=== PATIENT | female | born 1935 ===

== ENCOUNTER 2018-04-03 07:18 | Emergency (ER) | payer OTHER ==
--- NOTE | 2018-04-03 08:07 | RAD REPORT ---
EXAM DESCRIPTION: RAD - Foot Left 3 View - 04/03/2018 7:55 am CLINICAL HISTORY: Recent fall, persistent foot pain COMPARISON: None. FINDINGS: No fracture, dislocation or periosteal reaction. No acute or destructive bony process. No air or foreign body in the soft tissues. Distal foot soft tissue swelling is evident without an as sociated bone or joint finding. IMPRESSION: Soft tissue swelling of the left foot is evident. No acute bone or joint finding.
--- NOTE | 2018-04-03 08:08 | RAD REPORT ---
EXAM DESCRIPTION: RAD - Pelvis - 04/03/2018 7:55 am CLINICAL HISTORY: Recent fall, pelvic pain COMPARISON: None. TECHNIQUE: AP imaging of the pelvis was obtained. FINDINGS: No fracture of the bony pelvis. No fracture, dislocation or other acute hip joint finding. No gross abnormality the SI joints. Sacral ala are too obscured by overlying soft tissues and bowel. No soft tissue abnormality. IMPRESSION: Negative pelvis for acute or significant findings. Assessment of the sacral ala and SI j oints very limited.
--- NOTE | 2018-04-03 08:09 | RAD REPORT ---
EXAM DESCRIPTION: RAD - Elbow Left 3 View - 04/03/2018 7:55 am COMPARISON: None. FINDINGS: No fracture is identified and no elevated posterior fat pad. There is no dislocation or pe riosteal reaction noted. No foreign body or other soft tissue abnormality. Slight cortical irregula rity of the lateral margin radial head believed to be normal variant. This is not a typical site for fracture. IMPRESSION: Negative left elbow examination for acute or significant finding.
--- NOTE | 2018-04-03 08:39 | EDPHYS ---
Physician Documentation [facility] Name: Magali Pineda Age: 82 yrs Sex: Female : 1935 Arrival Date: 04/03/2018 Time: 07:20 Bed 13 Private MD: ED Physician Kade Bonilla HPI: 04/03 08:32 This 82 yrs old Unknown Female presents to ER via Wheelchair with complaints of Foot gs Pain. 08:32 The patient presents with an injury, pain. The complaints affect the left foot. gs Context: The problem was sustained at home, resulted from the patient falling, from a standing position, the patient can partially bear weight, the patient is able to ambulate. Associated signs and symptoms: Pertinent positives: left elbow pain. Severity of symptoms: At their worst the symptoms were moderate, in the emergency department the symptoms are unchanged. Historical: - Allergies: 07:35 Clindamycin; ss 07:35 PENICILLINS; ss 07:35 Sulfa (Sulfonamide Antibiotics); ss - Home Meds: 07:25 Actos 30 mg Oral tab 1 tab once daily [Active]; Alphagan P ophthalmic [Active]; Altace rb1 10 mg Oral cap 1 cap once daily [Active]; Ambien CR 12.5 mg Oral TbMP 1 tab once daily [Active]; aspirin 81 mg Oral chew 1 tab once daily [Active]; Celexa 40 mg Oral tab 1 tab once daily [Active]; Claritin 10 mg Oral tab 1 tab once daily [Active]; clobetasol 0.05 % Topical sham every other night [Active]; Coreg 25 mg Oral tab 1 tab 2 times per day [Active]; Ferrocite Plus 106 mg iron- 1 mg Oral tab 1 tab once daily [Active]; Fish Oil Oral [Active]; fluocinonide ointment 0.05 % apply to ears HS [Active]; Lipitor 40 mg Oral tab 1 tab once daily [Active]; metformin 500 mg Oral tab 2 tabs 2 times per day [Active]; Dexilant 60 mg Oral CpDB 1 cap once daily [Active]; hydrochlorothiazide 25 mg Oral tab 1 tab once daily [Active]; Tricor 145 mg Oral tab 1 tab once daily [Active]; potassium chloride 10 mEq Oral cpER 1 cap once daily [Active]; tramadol 50 mg Oral tab 1 tab BID for Pain [Active]; Zioptan (PF) 0.0015 % ophthalmic dpet 1 drop once daily [Active]; optivar one drop each eye at bedtime [Active]; - PMHx: 07:35 COPD; Diabetes - NIDDM; Hypertension; ss - PSHx: 07:25 unknown throat; unknown abdominal; rb1 - Immunization history:: Adult Immunizations up to date. - Social history:: Smoking status: Patient/guardian denies using tobacco. - Ebola Screening: : Patient denies exposure to infectious person Patient denies travel to an Ebola-affected area in the 21 days before illness onset. ROS: 08:32 All other systems are negative. gs 08:32 Cardiovascular: Negative for chest pain, palpitations. gs Exam: 08:32 Head/Face: Normocephalic, atraumatic. Eyes: Pupils equal round and reactive to light, gs extra-ocular motions intact. Lids and lashes normal. Conjunctiva and sclera are non-icteric and not injected. Cornea within normal limits. Periorbital areas with no swelling, redness, or edema. ENT: Nares patent. No nasal discharge, no septal abnormalities noted. Tympanic membranes are normal and external auditory canals are clear. Oropharynx with no redness, swelling, or masses, exudates, or evidence of obstruction, uvula midline. Mucous membranes moist. Neck: Trachea midline, no thyromegaly or masses palpated, and no cervical lymphadenopathy. Supple, full range of motion without nuchal rigidity, or vertebral point tenderness. No Meningismus. Chest/axilla: Normal chest wall appearance and motion. Nontender with no deformity. No lesions are appreciated. Cardiovascular: Regular rate and rhythm with a normal S1 and S2. No gallops, murmurs, or rubs. Normal PMI, no JVD. No pulse deficits. Respiratory: Lungs have equal breath sounds bilaterally, clear to auscultation and percussion. No rales, rhonchi or wheezes noted. No increased work of breathing, no retractions or nasal flaring. Abdomen/GI: Soft, non-tender, with normal bowel sounds. No distension or tympany. No guarding or rebound. No evidence of tenderness throughout. Back: No spinal tenderness. No costovertebral tenderness. Full range of motion. Skin: Warm, dry with normal turgor. Normal color with no rashes, no lesions, and no evidence of cellulitis. Neuro: Awake and alert, GCS 15, oriented to person, place, time, and situation. Cranial nerves II-XII grossly intact. Motor strength 5/5 in all extremities. Sensory grossly intact. Cerebellar exam normal. Normal gait. 08:32 Constitutional: The patient appears alert, awake. 08:32 Musculoskeletal/extremity: Extremities: noted in the dorsum of left foot: ecchymosis, pain, tenderness, There is no evidence of deformity, noted in the left elbow: decreased ROM, pain, tenderness, noted in the left hip: pain, tenderness, no evidence of deformity, Circulation is intact in all extremities. Vital Signs: 07:35 BP 162 / 106; Pulse 91; Resp 18; Temp 98.0(TE); Pulse Ox 94% on R/A; Weight 96.16 kg; ss Height 5 ft. 5 in. (165.10 cm); Pain 4/10; 08:30 BP 125 / 70; Pulse 83; Resp 17; Pulse Ox 92% on R/A; rb1 08:55 BP 125 / 70; Pulse 85; Resp 18; Pulse Ox 92% on R/A; rb1 07:35 Body Mass Index 35.28 (96.16 kg, 165.10 cm) ss MDM: 07:31 Patient medically screened. gs 08:32 Differential diagnosis: fracture, sprain. Data reviewed: vital signs, nurses notes. gs Counseling: I had a detailed discussion with the patient and/or guardian regarding: the historical points, exam findings, and any diagnostic results supporting the discharge/admit diagnosis, radiology results. Response to treatment: the patient's symptoms have mildly improved after treatment. 04/03 07:33 Order name: Foot Left 3 View XRAY; Complete Time: 08:28 gs 04/03 07:33 Order name: Elbow Left 3 View XRAY; Complete Time: 08:28 gs 04/03 07:33 Order name: Pelvis XRAY; Complete Time: 08:28 gs Administered Medications: No medications were administered Disposition: 04/03/18 08:38 Discharged to Home. Impression: Contusion of lower leg, Contusion of left elbow. - Condition is Stable. - Discharge Instructions: Contusion, [id number]. - Medication Reconciliation Form, Thank You Letter, Antibiotic Education, Prescription Opioid Use form. - Follow up: Hari Larios MD; When: 2 - 3 days; Reason: Re-evaluation by your physician. Signatures: Dispatcher [employer] Evelyn Shin, RN RN ss Bella Mendenhall RN RN rb1 Kade Bonilla MD MD gs Corrections: (The following items were deleted from the chart) 08:55 08:38 04/03/2018 08:38 Discharged to Home. Impression: Contusion of lower leg; rb1 Contusion of left elbow. Condition is Stable. Forms are Medication Reconciliation Form, Thank You Letter, Antibiotic Education, Prescription Opioid Use. Follow up: Dr. Hari Larios; When: 2 - 3 days; Reason: Re-evaluation by your physician. gs
--- NOTE | 2018-04-03 08:39 | ER ---
Nurse's Notes [facility] Name: Magali Pineda Age: 82 yrs Sex: Female : 1935 Arrival Date: 04/03/2018 Time: 07:20 Bed 13 Private MD: Diagnosis: Contusion of lower leg;Contusion of left elbow Presentation: 04/03 07:21 Presenting complaint: Patient states: L foot, L elbow and L hip pain that began after ss falling from a standing position yesterday at 1630. Risk Assessment: Do you want to hurt yourself or someone else? Patient reports no desire to harm self or others. Initial Sepsis Screen: Does the patient meet any 2 criteria? No. Patient's initial sepsis screen is negative. Does the patient have a suspected source of infection? No. Patient's initial sepsis screen is negative. Care prior to arrival: None. 07:21 Method Of Arrival: Wheelchair ss 07:21 Acuity: MONICA 4 ss 07:32 Transition of care: patient was not received from another setting of care. Onset of ss symptoms was April 02, 2018. Historical: - Allergies: 07:35 Clindamycin; ss 07:35 PENICILLINS; ss 07:35 Sulfa (Sulfonamide Antibiotics); ss - Home Meds: 07:25 Actos 30 mg Oral tab 1 tab once daily [Active]; Alphagan P ophthalmic [Active]; Altace rb1 10 mg Oral cap 1 cap once daily [Active]; Ambien CR 12.5 mg Oral TbMP 1 tab once daily [Active]; aspirin 81 mg Oral chew 1 tab once daily [Active]; Celexa 40 mg Oral tab 1 tab once daily [Active]; Claritin 10 mg Oral tab 1 tab once daily [Active]; clobetasol 0.05 % Topical sham every other night [Active]; Coreg 25 mg Oral tab 1 tab 2 times per day [Active]; Ferrocite Plus 106 mg iron- 1 mg Oral tab 1 tab once daily [Active]; Fish Oil Oral [Active]; fluocinonide ointment 0.05 % apply to ears HS [Active]; Lipitor 40 mg Oral tab 1 tab once daily [Active]; metformin 500 mg Oral tab 2 tabs 2 times per day [Active]; Dexilant 60 mg Oral CpDB 1 cap once daily [Active]; hydrochlorothiazide 25 mg Oral tab 1 tab once daily [Active]; Tricor 145 mg Oral tab 1 tab once daily [Active]; potassium chloride 10 mEq Oral cpER 1 cap once daily [Active]; tramadol 50 mg Oral tab 1 tab BID for Pain [Active]; Zioptan (PF) 0.0015 % ophthalmic dpet 1 drop once daily [Active]; optivar one drop each eye at bedtime [Active]; - PMHx: 07:35 COPD; Diabetes - NIDDM; Hypertension; ss - PSHx: 07:25 unknown throat; unknown abdominal; rb1 - Immunization history:: Adult Immunizations up to date. - Social history:: Smoking status: Patient/guardian denies using tobacco. - Ebola Screening: : Patient denies exposure to infectious person Patient denies travel to an Ebola-affected area in the 21 days before illness onset. Screenin:25 Abuse screen: Denies threats or abuse. Nutritional screening: No deficits noted. rb1 Tuberculosis screening: No symptoms or risk factors identified. 07:25 Fall Risk Fall in past 12 months (25 points). Secondary diagnosis (15 points) impaired rb1 mobility, No IV (0 pts). Ambulatory Aid- Crutches/Cane/Walker (15 pts). Gait- Impaired (20 pts.). Mental Status- Oriented to own ability (0 pts). Total Finnegan Fall Scale indicates High Risk Score (45 or more points). Fall prevention measures have been instituted. Side Rails Up X 2 Placed Close to Nursing Station 1:1 Attendant Assigned Frequent Obs/Assessments Occuring As available patient and family educated on Fall Prevention Program and Strategies. Assessment: 07:25 General: Appears in no apparent distress. comfortable, Behavior is calm, cooperative. rb1 Pain: Complains of pain in left foot and left elbow Pain currently is 8 out of 10 on a pain scale. Pain began 1 day ago. Neuro: Level of Consciousness is awake, alert, obeys commands, Oriented to person, place, time, situation. Cardiovascular: Capillary refill < 3 seconds is brisk in bilateral fingers. Respiratory: Airway is patent Respiratory effort is even, unlabored, Respiratory pattern is regular, symmetrical. GI: No signs and/or symptoms were reported involving the gastrointestinal system. : No signs and/or symptoms were reported regarding the genitourinary system. Derm: Skin is pink, warm \T\ dry. Musculoskeletal: Range of motion: intact in all extremities, Pt. c/o of pain when trying to ambulate. 07:46 Reassessment: X-ray at bedside. rb1 08:20 Reassessment: Patient appears in no apparent distress at this time. No changes from rb1 previously documented assessment. Daughter at bedside. Vital Signs: 07:35 BP 162 / 106; Pulse 91; Resp 18; Temp 98.0(TE); Pulse Ox 94% on R/A; Weight 96.16 kg; ss Height 5 ft. 5 in. (165.10 cm); Pain 4/10; 08:30 BP 125 / 70; Pulse 83; Resp 17; Pulse Ox 92% on R/A; rb1 08:55 BP 125 / 70; Pulse 85; Resp 18; Pulse Ox 92% on R/A; rb1 07:35 Body Mass Index 35.28 (96.16 kg, 165.10 cm) ED Course: 07:20 Patient arrived in ED. ss 07:22 Triage completed. ss 07:25 Bella Mendenhall, RN is Primary Nurse. rb1 07:25 Patient has correct armband on for positive identification. Placed in gown. Bed in low rb1 position. Call light in reach. Side rails up X 1. Pulse ox on. NIBP on. 07:26 Kade Bonilla MD is Attending Physician. gs 07:35 Arm band placed on right wrist. ss 07:55 X-ray completed. Portable x-ray completed in exam room. Patient tolerated procedure sg4 well. 07:55 Foot Left 3 View XRAY In Process Unspecified. EDMS 07:56 Elbow Left 3 View XRAY In Process Unspecified. EDMS 07:56 Pelvis XRAY In Process Unspecified. EDMS 08:37 Hari Larios MD is Referral Physician. gs 08:55 No provider procedures requiring assistance completed. Patient did not have IV access rb1 during this emergency room visit. Administered Medications: No medications were administered Outcome: 08:38 Discharge ordered by . gs 08:55 Patient left the ED. rb1 08:55 Discharged to home via wheelchair, with family. rb1 08:55 Condition: stable 08:55 Discharge instructions given to patient, Instructed on discharge instructions, follow up and referral plans. Demonstrated understanding of instructions, follow-up care, Prescriptions given X none Signatures: Dispatcher [employer] EDAnni Taylorby, RN RN ss Bella Mendenhall RN RN rb1 Kade Bonilla MD MD gs Garcia, Susana sg4 Corrections: (The following items were deleted from the chart) 07:33 07:21 Presenting complaint: Patient states: L foot pain that began after falling from a ss standing position yesterday at 1630.
== END 2018-04-03 08:55 | disposition home or self-care (01) ==
LOC: ER 07:18
DX: S80.12XA Contusion of left lower leg, initial encounter (principal); S50.02XA Contusion of left elbow, initial encounter; W18.39XA Other fall on same level, initial encounter; Y93.89 Activity, other specified; Y92.009 Unspecified place in unspecified non-institutional (private) residence as the place of occurrence of the external cause; Z79.82 Long term (current) use of aspirin; Z88.0 Allergy status to penicillin; Z88.2 Allergy status to sulfonamides; Z88.3 Allergy status to other anti-infective agents; I10 Essential (primary) hypertension; E11.9 Type 2 diabetes mellitus without complications; J44.9 Chronic obstructive pulmonary disease, unspecified
CPT/HCPCS: 72170; 99283

== ENCOUNTER 2018-05-17 05:00 | Inpatient (IN) | payer OTHER ==
[2018-05-17] MEDS ORDERED: FENTANYL CITR 100 MCG/2 ML ONE (05:45)
[2018-05-17] MEDS ORDERED: ONDANSETRON 4 MG/2 ML VIAL ONE ×2 (05:46→07:27)
--- NOTE | 2018-05-17 06:32 | EDPHYS ---
Physician Documentation [facility] Name: Magali Pineda Age: 83 yrs Sex: Female : 1935 Arrival Date: 05/17/2018 Time: 05:03 Bed 16 Private MD: ED Physician Ludin Solorio HPI: 05/17 05:34 This 83 yrs old Unknown Female presents to ER via EMS with complaints of right hip pain sami sp fall. 05:34 The patient or guardian reports decreased range of motion, pain. the right lower sami extremity is shortened, right leg is externally rotated, The patient is not able to ambulate. Patient is not able to bear weight. The complaints affect the right hip and right upper thigh. Onset: The symptoms/episode began/occurred just prior to arrival. Modifying factors: The symptoms are alleviated by remaining still, the symptoms are aggravated by nothing. The patient presents with decreased range of motion. The complaints affect the right hip and right upper thigh. Context: The problem was sustained at home. Historical: - Allergies: 05:03 Clindamycin; jb4 05:03 PENICILLINS; jb4 05:03 Sulfa (Sulfonamide Antibiotics); jb4 05:03 Ciprofloxacin; jb4 - Home Meds: 05:03 Actos 30 mg Oral tab 1 tab once daily [Active]; Alphagan P ophthalmic [Active]; Altace jb4 10 mg Oral cap 1 cap once daily [Active]; Ambien CR 12.5 mg Oral TbMP 1 tab once daily [Active]; aspirin 81 mg Oral chew 1 tab once daily [Active]; Celexa 40 mg Oral tab 1 tab once daily [Active]; Claritin 10 mg Oral tab 1 tab once daily [Active]; Coreg 25 mg Oral tab 1 tab 2 times per day [Active]; fluocinonide ointment 0.05 % apply to ears HS [Active]; Lipitor 40 mg Oral tab 1 tab once daily [Active]; Dexilant 60 mg Oral CpDB 1 cap once daily [Active]; Ferrocite Plus 106 mg iron- 1 mg Oral tab 1 tab once daily [Active]; Fish Oil Oral [Active]; hydrochlorothiazide 25 mg Oral tab 1 tab once daily [Active]; metformin 500 mg Oral tab 2 tabs 2 times per day [Active]; optivar one drop each eye at bedtime [Active]; potassium chloride 10 mEq Oral cpER 1 cap once daily [Active]; tramadol 50 mg Oral tab 1 tab BID for Pain [Active]; Tricor 145 mg Oral tab 1 tab once daily [Active]; Zioptan (PF) 0.0015 % ophthalmic dpet 1 drop once daily [Active]; - PMHx: 05:03 Hypertension; Diabetes - NIDDM; COPD; jb4 - PSHx: 05:03 unknown throat; unknown abdominal; jb4 - Immunization history:: Adult Immunizations up to date, Pneumococcal vaccine is up to date, Flu vaccine is up to date. - Social history:: Smoking status: Patient/guardian denies using tobacco, but has a distant history of tobacco abuse, Patient/guardian denies using alcohol. - Ebola Screening: : No symptoms or risks identified at this time. ROS: 05:36 Constitutional: Negative for fever, chills, and weight loss, Eyes: Negative for injury, sami pain, redness, and discharge, ENT: Negative for injury, pain, and discharge, Neck: Negative for injury, pain, and swelling, Cardiovascular: Negative for chest pain, palpitations, and edema, Respiratory: Negative for shortness of breath, cough, wheezing, and pleuritic chest pain, Abdomen/GI: Negative for abdominal pain, nausea, vomiting, diarrhea, and constipation, Back: Negative for injury and pain, : Negative for injury, bleeding, discharge, and swelling, Skin: Negative for injury, rash, and discoloration, Neuro: Negative for headache, weakness, numbness, tingling, and seizure, Psych: Negative for depression, anxiety, suicide ideation, homicidal ideation, and hallucinations, Allergy/Immunology: Negative for hives, rash, and allergies, Endocrine: Negative for neck swelling, polydipsia, polyuria, polyphagia, and marked weight changes, Hematologic/Lymphatic: Negative for swollen nodes, abnormal bleeding, and unusual bruising. 05:36 MS/extremity: Positive for decreased range of motion, pain, tenderness, of the right femoral area and right hip. Exam: 05:36 Constitutional: This is a well developed, well nourished patient who is awake, alert, sami and in no acute distress. Head/Face: Normocephalic, atraumatic. Eyes: Pupils equal round and reactive to light, extra-ocular motions intact. Lids and lashes normal. Conjunctiva and sclera are non-icteric and not injected. Cornea within normal limits. Periorbital areas with no swelling, redness, or edema. ENT: Nares patent. No nasal discharge, no septal abnormalities noted. Tympanic membranes are normal and external auditory canals are clear. Oropharynx with no redness, swelling, or masses, exudates, or evidence of obstruction, uvula midline. Mucous membranes moist. Neck: Trachea midline, no thyromegaly or masses palpated, and no cervical lymphadenopathy. Supple, full range of motion without nuchal rigidity, or vertebral point tenderness. No Meningismus. Chest/axilla: Normal chest wall appearance and motion. Nontender with no deformity. No lesions are appreciated. Cardiovascular: Regular rate and rhythm with a normal S1 and S2. No gallops, murmurs, or rubs. Normal PMI, no JVD. No pulse deficits. Respiratory: Lungs have equal breath sounds bilaterally, clear to auscultation and percussion. No rales, rhonchi or wheezes noted. No increased work of breathing, no retractions or nasal flaring. Abdomen/GI: Soft, non-tender, with normal bowel sounds. No distension or tympany. No guarding or rebound. No evidence of tenderness throughout. Back: No spinal tenderness. No costovertebral tenderness. Full range of motion. Skin: Warm, dry with normal turgor. Normal color with no rashes, no lesions, and no evidence of cellulitis. Neuro: Awake and alert, GCS 15, oriented to person, place, time, and situation. Cranial nerves II-XII grossly intact. Motor strength 5/5 in all extremities. Sensory grossly intact. Cerebellar exam normal. Normal gait. Psych: Awake, alert, with orientation to person, place and time. Behavior, mood, and affect are within normal limits. 05:36 Musculoskeletal/extremity: ROM: limited active range of motion, in the right hip and right upper thigh, limited passive range of motion, limited active range of motion due to pain, limited passive range of motion due to pain, Pulses: are normal with no appreciated deficits, Sensation intact. Compartment Syndrome exam of affected extremity: is normal. DVT Exam: No signs of deep vein thrombosis. no pain, no swelling, negative Homans' sign noted on exam, no appreciated bluish discoloration, no erythema, no increased warmth, tenderness. Vital Signs: 05:03 BP 127 / 84; Pulse 95; Resp 16; Temp 98.8(O); Pulse Ox 94% on R/A; Weight 96.16 kg (R); jb4 Height 5 ft. 5 in. (165.10 cm) (R); Pain 9/10; 06:30 BP 141 / 76; Pulse 104; Resp 23; Pulse Ox 95% on 2 lpm NC; jb4 07:15 BP 181 / 88; Pulse 101; Resp 16; Pulse Ox 99% on 2 lpm NC; Pain 10/10; jl7 07:30 BP 131 / 72; Pulse 104; Resp 16 S; Pulse Ox 99% on 2 lpm NC; Pain 5/10; jl7 08:09 BP 132 / 86; Pulse 106; Resp 16 S; Pulse Ox 99% on 2 lpm NC; Pain 7/10; jl7 05:03 Body Mass Index 35.28 (96.16 kg, 165.10 cm) jb4 MDM: 05:13 Patient medically screened. [facility] 05:36 Data reviewed: vital signs, nurses notes, lab test result(s), EKG, radiologic studies, sami plain films. 05/17 05:26 Order name: Basic Metabolic Panel; Complete Time: 07:08 [facility] 05/17 05:26 Order name: CBC with Diff [facility] 05/17 05:26 Order name: LFT's; Complete Time: 07:08 [facility] 05/17 05:26 Order name: Magnesium; Complete Time: 07:08 [facility] 05/17 05:26 Order name: NT PRO-BNP; Complete Time: 07:08 [facility] 05/17 05:26 Order name: PT-INR; Complete Time: 07:24 [facility] 05/17 05:26 Order name: Troponin (emerg Dept Use Only); Complete Time: 07:08 [facility] 05/17 05:26 Order name: XRAY Chest (1 view) [facility] 05/17 05:26 Order name: Lipase; Complete Time: 07:08 [facility] 05/17 05:26 Order name: Type And Screen [facility] 05/17 05:26 Order name: Pelvis XRAY [facility] 05/17 05:26 Order name: Urine Culture [facility] 05/17 06:58 Order name: ABO/RH no charge; Complete Time: 07:02 EDMS 05/17 07:05 Order name: Urine Dipstick--Ancillary (enter results) ar5 05/17 05:26 Order name: EKG; Complete Time: 05:27 [facility] 05/17 05:26 Order name: Cardiac monitoring; Complete Time: 06:15 [facility] 05/17 05:26 Order name: EKG - Nurse/Tech; Complete Time: 06:07 [facility] 05/17 05:26 Order name: IV Saline Lock; Complete Time: 06:07 [facility] 05/17 05:26 Order name: Labs collected and sent; Complete Time: 06:07 [facility] 05/17 05:26 Order name: O2 Per Protocol; Complete Time: 06:15 [facility] 05/17 05:26 Order name: O2 Sat Monitoring; Complete Time: 06:15 [facility] 05/17 05:26 Order name: Hip Right 2 View XRAY [facility] 05/17 05:26 Order name: Urine Dipstick-Ancillary (obtain specimen); Complete Time: 06:58 [facility] 05/17 05:26 Order name: Mireles; Complete Time: 06:58 [facility] Administered Medications: 06:10 Drug: fentaNYL (PF) 25 mcg Route: IVP; Site: left forearm; jb4 07:03 Follow up: Response: No adverse reaction; Pain is decreased jb4 06:11 Drug: Zofran 4 mg Route: IVP; Site: left forearm; jb4 07:03 Follow up: Response: No adverse reaction; Nausea is decreased jb4 06:45 Drug: fentaNYL (PF) 25 mcg Route: IVP; Site: left forearm; jb4 07:15 Follow up: Response: No adverse reaction; Pain is unchanged, physician notified jl7 07:20 Drug: Zofran 4 mg Route: IVP; Site: left forearm; jl7 08:08 Follow up: Response: No adverse reaction jl7 07:22 Drug: morphine 2 mg Route: IVP; Site: left forearm; jl7 07:35 Follow up: Response: No adverse reaction; Pain is decreased jl7 07:24 Drug: Magnesium Sulfate 2 grams Route: IVPB; Infused Over: 2 hrs; Site: left forearm; jl7 08:11 Follow up: IV Status: Infusion continued upon admission jl7 08:07 Drug: morphine 2 mg Route: IVP; Site: left forearm; jl7 08:08 Follow up: Response: No adverse reaction jl7 Disposition: 05/17/18 06:31 Hospitalization ordered by Kal Montenegro for Inpatient Admission. Preliminary diagnosis are Fall due to bumping against object, Displaced intertrochanteric fracture of right femur, Hypomagnesemia, Elevated white blood cell count. - Bed requested for Telemetry/MedSurg (Inpatient). - Status is Inpatient Admission. jl7 - Condition is Fair. - Problem is new. - Symptoms have improved. UTI on Admission? No Signatures: Dispatcher [employer] EDMS Heaven Cunha RN Ludin Kelley MD MD cha Bryson, James, RN RN jb4 Harjeet English RN RN jl7 Corrections: (The following items were deleted from the chart) 06:56 06:31 Hospitalization Ordered by Kal Montenegro MD for Inpatient Admission. Preliminary diagnosis is Fall due to bumping against object; Displaced intertrochanteric fracture of right femur. Bed requested for Telemetry/MedSurg (Inpatient). Status is Inpatient Admission. Condition is Fair. Problem is new. Symptoms have improved. UTI on Admission? No. sami 07:10 06:56 05/17/2018 06:31 Hospitalization Ordered by Kal Montenegro MD for Inpatient [facility] Admission. Preliminary diagnosis is Fall due to bumping against object; Displaced intertrochanteric fracture of right femur. Bed requested for Telemetry/MedSurg (Inpatient). Status is Inpatient Admission. Condition is Fair. Problem is new. Symptoms have improved. UTI on Admission? No. kl 08:28 07:10 05/17/2018 06:31 Hospitalization Ordered by Kal Montenegro MD for Inpatient jl Admission. Preliminary diagnosis is Fall due to bumping against object; Displaced intertrochanteric fracture of right femur; Hypomagnesemia; Elevated white blood cell count. Bed requested for Telemetry/MedSurg (Inpatient). Status is Inpatient Admission. Condition is Fair. Problem is new. Symptoms have improved. UTI on Admission? No. sami
--- NOTE | 2018-05-17 06:32 | ER ---
Nurse's Notes [facility] Name: Magali Pineda Age: 83 yrs Sex: Female : 1935 Arrival Date: 05/17/2018 Time: 05:03 Bed 16 Private MD: Diagnosis: Fall due to bumping against object;Displaced intertrochanteric fracture of right femur;Hypomagnesemia;Elevated white blood cell count Presentation: 05/17 05:03 Presenting complaint: EMS states: She fell at home and hit her right hip. No obvious jb4 deformity, denies hitting her head or LOC. The leg is tender to the touch. 05:03 Transition of care: patient was not received from another setting of care. Onset of jb4 symptoms was May 17, 2018. Risk Assessment: Do you want to hurt yourself or someone else? Patient reports no desire to harm self or others. Initial Sepsis Screen: Does the patient meet any 2 criteria? HR > 90 bpm. Yes Does the patient have a suspected source of infection? No. Patient's initial sepsis screen is negative. 05:03 Method Of Arrival: EMS: [facility] jb4 05:03 Acuity: MONICA 3 jb4 05:03 Care prior to arrival: None. jb4 Historical: - Allergies: 05:03 Clindamycin; jb4 05:03 PENICILLINS; jb4 05:03 Sulfa (Sulfonamide Antibiotics); jb4 05:03 Ciprofloxacin; jb4 - Home Meds: 05:03 Actos 30 mg Oral tab 1 tab once daily [Active]; Alphagan P ophthalmic [Active]; Altace jb4 10 mg Oral cap 1 cap once daily [Active]; Ambien CR 12.5 mg Oral TbMP 1 tab once daily [Active]; aspirin 81 mg Oral chew 1 tab once daily [Active]; Celexa 40 mg Oral tab 1 tab once daily [Active]; Claritin 10 mg Oral tab 1 tab once daily [Active]; Coreg 25 mg Oral tab 1 tab 2 times per day [Active]; fluocinonide ointment 0.05 % apply to ears HS [Active]; Lipitor 40 mg Oral tab 1 tab once daily [Active]; Dexilant 60 mg Oral CpDB 1 cap once daily [Active]; Ferrocite Plus 106 mg iron- 1 mg Oral tab 1 tab once daily [Active]; Fish Oil Oral [Active]; hydrochlorothiazide 25 mg Oral tab 1 tab once daily [Active]; metformin 500 mg Oral tab 2 tabs 2 times per day [Active]; optivar one drop each eye at bedtime [Active]; potassium chloride 10 mEq Oral cpER 1 cap once daily [Active]; tramadol 50 mg Oral tab 1 tab BID for Pain [Active]; Tricor 145 mg Oral tab 1 tab once daily [Active]; Zioptan (PF) 0.0015 % ophthalmic dpet 1 drop once daily [Active]; - PMHx: 05:03 Hypertension; Diabetes - NIDDM; COPD; jb4 - PSHx: 05:03 unknown throat; unknown abdominal; jb4 - Immunization history:: Adult Immunizations up to date, Pneumococcal vaccine is up to date, Flu vaccine is up to date. - Social history:: Smoking status: Patient/guardian denies using tobacco, but has a distant history of tobacco abuse, Patient/guardian denies using alcohol. - Ebola Screening: : No symptoms or risks identified at this time. Screenin:03 Abuse screen: Denies threats or abuse. Nutritional screening: No deficits noted. jb4 Tuberculosis screening: No symptoms or risk factors identified. Fall Risk Fall in past 12 months (25 points). Total Finnegan Fall Scale indicates Low Risk Score (25-44 pts). Fall prevention measures have been instituted. Side Rails Up X 2 Placed close to Nursing Station Frequent Obs/Assesments occuring Family Present and informed to notify staff if they need to leave bedside. Assessment: 05:03 General: Appears in no apparent distress. uncomfortable, Behavior is calm, cooperative, jb4 appropriate for age. Pain: Complains of pain in right hip Pain radiates to right leg Pain currently is 9 out of 10 on a pain scale. Quality of pain is described as sharp, stabbing, Pain began 1 hour ago. Neuro: Level of Consciousness is awake, alert, obeys commands, Oriented to person, place, time, situation. Cardiovascular: Patient's skin is warm and dry. Respiratory: Airway is patent Respiratory effort is even, unlabored, Respiratory pattern is regular, symmetrical. GI: No signs and/or symptoms were reported involving the gastrointestinal system. : No signs and/or symptoms were reported regarding the genitourinary system. EENT: No signs and/or symptoms were reported regarding the EENT system. Derm: Skin is intact, Skin is pink, warm \T\ dry. Musculoskeletal: Circulation, motion, and sensation intact. Range of motion: limited in right hip Right leg is noticeably shorter than the left. 06:16 Reassessment: Patient appears in no apparent distress at this time. Patient and/or jb4 family updated on plan of care and expected duration. Pain level reassessed. Patient is alert, oriented x 3, equal unlabored respirations, skin warm/dry/pink. Xray is at the bedside. 07:15 Reassessment: Patient appears in no apparent distress at this time. Patient and/or jl7 family updated on plan of care and expected duration. Pain level reassessed. Patient is alert, oriented x 3, equal unlabored respirations, skin warm/dry/pink. Pt c/o pain to the right leg, rated 10/10, ERD notified, see MAR for orders. Vital Signs: 05:03 BP 127 / 84; Pulse 95; Resp 16; Temp 98.8(O); Pulse Ox 94% on R/A; Weight 96.16 kg (R); jb4 Height 5 ft. 5 in. (165.10 cm) (R); Pain 9/10; 06:30 BP 141 / 76; Pulse 104; Resp 23; Pulse Ox 95% on 2 lpm NC; jb4 07:15 BP 181 / 88; Pulse 101; Resp 16; Pulse Ox 99% on 2 lpm NC; Pain 10/10; jl7 07:30 BP 131 / 72; Pulse 104; Resp 16 S; Pulse Ox 99% on 2 lpm NC; Pain 5/10; jl7 08:09 BP 132 / 86; Pulse 106; Resp 16 S; Pulse Ox 99% on 2 lpm NC; Pain 7/10; jl7 05:03 Body Mass Index 35.28 (96.16 kg, 165.10 cm) jb4 ED Course: 05:03 Patient arrived in ED. al2 05:03 Arm band placed on left wrist. jb4 05:03 Patient has correct armband on for positive identification. Bed in low position. Call jb4 light in reach. Side rails up X2. Pulse ox on. NIBP on. 05:08 Myron Ibarra, RN is Primary Nurse. jb4 05:10 Triage completed. jb4 05:13 Ludin Solorio MD is Attending Physician. sami 06:07 Inserted saline lock: 22 gauge in left forearm, using aseptic technique. aa1 06:30 Kal Montenegro MD is Hospitalizing Provider. sami 06:33 X-ray completed. Portable x-ray completed in exam room. Patient tolerated procedure tm4 well. 06:34 XRAY Chest (1 view) In Process Unspecified. EDMS 06:34 Pelvis XRAY In Process Unspecified. EDMS 06:34 Hip Right 2 View XRAY In Process Unspecified. EDMS 06:50 Mireles cath inserted, using sterile technique, 16 Fr., by nd, balloon inflated, to jb4 gravity drainage, urine specimen collected. 07:00 Report given to SINGH Cosby. jb4 08:10 No provider procedures requiring assistance completed. Patient admitted, IV remains in jl7 place. intact, No redness/swelling at site. Administered Medications: 06:10 Drug: fentaNYL (PF) 25 mcg Route: IVP; Site: left forearm; jb4 07:03 Follow up: Response: No adverse reaction; Pain is decreased jb4 06:11 Drug: Zofran 4 mg Route: IVP; Site: left forearm; jb4 07:03 Follow up: Response: No adverse reaction; Nausea is decreased jb4 06:45 Drug: fentaNYL (PF) 25 mcg Route: IVP; Site: left forearm; jb4 07:15 Follow up: Response: No adverse reaction; Pain is unchanged, physician notified jl7 07:20 Drug: Zofran 4 mg Route: IVP; Site: left forearm; jl7 08:08 Follow up: Response: No adverse reaction jl7 07:22 Drug: morphine 2 mg Route: IVP; Site: left forearm; jl7 07:35 Follow up: Response: No adverse reaction; Pain is decreased jl7 07:24 Drug: Magnesium Sulfate 2 grams Route: IVPB; Infused Over: 2 hrs; Site: left forearm; jl7 08:11 Follow up: IV Status: Infusion continued upon admission jl7 08:07 Drug: morphine 2 mg Route: IVP; Site: left forearm; jl7 08:08 Follow up: Response: No adverse reaction jl Outcome: 06:31 Decision to Hospitalize by Provider. sami 08:10 Admitted to Med/surg accompanied by tech, family with patient, via stretcher, room 230, jl7 with oxygen, with chart, Report called to SINGH Maya 08:10 Condition: stable 08:10 Discharge instructions given to patient, family, Instructed on the need for admit, Demonstrated understanding of instructions. 08:28 Patient left the ED. jl7 Signatures: Dispatcher [employer] EDMary Steven RN RN aa1 Ludin Solorio MD MD cha Marroquin, Tracy 4 Myron Ibarra RN RN jb4 Harjeet English RN RN jl7 Freya Jean2 Corrections: (The following items were deleted from the chart) 06:16 05:03 BP 127 / 84; Pulse 95bpm; Resp 16bpm; Pulse Ox 94% RA; 96.16 kg Reported; Height jb4 5 ft. 5 in. Reported; BMI: 35.2; Pain 910; jb4 08:10 07:15 BP 181 / 88; Pulse 101bpm; Resp 16bpm; Pulse Ox 99%; Pain 10/10; jl7 jl7
[2018-05-17 06:47] LABS: Absolute Lymphocytes (CBC) 0.4 K/uL (0.7-4.9); Absolute Monocytes 1.1 K/uL (0.1-1.3); Absolute Neutrophil 14.6 K/uL (1.8-8.0); Basophils % 0.6 % (0-1.3); Eosinophils % 1.4 % (0-4.4); Hematocrit 35.5 % (36.0-45.0); Lymphocytes % 2.5 % (15.3-44.8); MPV 9.1 fL (7.6-11.3); Monocytes % 6.6 % (3.3-12.3); RBC Red Blood Cell Count 3.91 M/uL (3.86-4.86)
[2018-05-17 07:03] LABS: ALT/SGPT 21 U/L (12-78); AST/SGOT 24 U/L (15-37); Albumin 3.7 g/dL (3.4-5.0); Alkaline Phosphatase 73 U/L (45-117); BUN Blood Urea Nitrogen 25 mg/dL (7-18); Bicarbonate 28 mmol/L (21-32); Bilirubin Direct 0.2 mg/dL (0-0.2); Bilirubin Total 0.6 mg/dL (0.2-1.0); Glucose Level 129 mg/dL (74-106); Lipase 179 U/L (73-393); NT PRO-BNP 1384 pg/mL (<450); Potassium 4.2 mmol/L (3.5-5.1); Protein, Total 6.7 g/dL (6.4-8.2); Sodium Level 138 mmol/L (136-145); Troponin (Emerg Dept Use Only) < 0.02 ng/mL (0.0-0.045)
[2018-05-17 07:06] LABS: Magnesium 1.2 mg/dL (1.8-2.4)
[2018-05-17 07:19] LABS: Protime INR 1.02
[2018-05-17] MEDS ORDERED: MORPHINE 4 MG/ML SYR ONE (07:25)
[2018-05-17] MEDS ORDERED: Magnesium Sulfate 2gm IVPB 2 G/50 ML BAG IV ONE (07:26)
--- NOTE | 2018-05-17 08:17 | RAD REPORT ---
EXAM DESCRIPTION: RAD - Chest Single View - 05/17/2018 6:34 am CLINICAL HISTORY: COUGH Chest pain. COMPARISON: Chest Single View dated 07/21/2016 FINDINGS: Portable technique limits examination quality. The lungs are grossly clear. The heart is mildly enlarged. No displaced fractures.Degenerative change s are present in both shoulders. IMPRESSION: No acute intrathoracic process suspected.
--- NOTE | 2018-05-17 08:17 | RAD REPORT ---
EXAM DESCRIPTION: RAD - Pelvis - 05/17/2018 6:34 am CLINICAL HISTORY: PAIN Fall, right hip pain COMPARISON: None FINDINGS: AP pelvis and right hip- multiple projections are submitted Intratrochanteric fracture the proximal right femur is seen with varus angulation. A dislocation is n ot evident. Bones are osteopenic.
[2018-05-17 09:50] LABS: Blood Morphology Comment NOT SEEN (NOT SEEN); Platelet Estimate ADEQ; Urine White Blood Cell Casts OK
[2018-05-17] MEDS: ACETAMINOPHEN 500 MG TAB PO PRN ×2 (10:40→14:50)
[2018-05-17] MEDS: NA CHLORIDE 0.9% 1,000 ML IV SCH ×2 (10:41→21:18)
--- NOTE | 2018-05-17 11:19 | RAD REPORT ---
EXAM DESCRIPTION: RAD - Hip Right 2 View - 05/17/2018 6:34 am CLINICAL HISTORY: PAIN Fall, right hip pain COMPARISON: None FINDINGS: AP pelvis and right hip- multiple projections are submitted Intratrochanteric fracture the proximal right femur is seen with varus angulation. A dislocation is n ot evident. Bones are osteopenic.
[2018-05-17] MEDS ORDERED: MORPHINE 4 MG/ML SYR IV PRN ×2 (11:51→16:14)
--- NOTE | 2018-05-17 14:40 | P.CNS ---
Date of Consult: 05/17/18 Reason for Consult: right hip fracture History of Present Illness: s/p fall right hip pain 01/27, she also has a left ankle sprain. requesting Dr bertrand for right hip fracture. she has been cleared for surgery. Allergies Penicillins Allergy (Severe, Verified 05/17/18 10:36) Anaphylaxis adhesive Allergy (Verified 05/17/18 09:39) Rash Sulfa (Sulfonamide Antibiotics) Allergy (Verified 05/17/18 10:36) Anaphylaxis Clindamycin Allergy (Uncoded 05/17/18 10:35) Anaphylaxis Home medications list reviewed: Yes Home Medications: Atorvastatin Calcium [Lipitor] 40 mg PO BEDTIME 05/17/18 Brimonidine Tartrate [Alphagan P] 1 drop EACH EYE BID 05/17/18 Carvedilol [Coreg*] 25 mg PO BID 05/17/18 Citalopram [Celexa*] 40 mg PO DAILY 05/17/18 Dexlansoprazole [Dexilant] 60 mg PO DAILY 05/17/18 Fenofibrate [Tricor*] 145 mg PO DAILY 05/17/18 Iron/FA/Vit B-Com W/C [Hemocyte Plus*] 1 tab PO DAILY 05/17/18 Metformin ER [Glucophage ER*] 500 mg PO BID 05/17/18 Pioglitazone [Actos*] 30 mg PO DAILY 05/17/18 Potassium Chloride [Klor-Con 10] 10 meq PO DAILY 05/17/18 Ramipril [Altace*] 10 mg PO DAILY 05/17/18 Tafluprost/Pf [Zioptan 0.0015% Eye Drops] 1 each OP BEDTIME 05/17/18 Tramadol HCl [Ultram] 50 mg PO PRN 05/17/18 Zolpidem Tartrate [Ambien Cr] 12.5 mg PO BEDTIME 05/17/18 hydroCHLOROthiazide [Hydrochlorothiazide*] 25 mg PO DAILY 05/17/18 - Past Medical/Surgical History Diabetic: Yes -: glucoma -: macular degeneration right eye -: HTN -: DM -: COPD Past Surgical History: Reviewed- Non-Contributory -: glucoma surgery 2013 -: Cataract surgery 2007 -: tonsillectomy 21 yo - Family History Mother Medical History: Heart disease Father Medical History: Heart disease - Social History Smoking Status: Former smoker Alcohol use: No CD- Drugs: No Caffeine use: No Place of [facility] Review of Systems 10-point ROS is otherwise unremarkable Physical Examination Temp Pulse Resp BP Pulse Ox 98.2 F 100 H 15 139/62 99 05/17/18 12:00 05/17/18 12:00 05/17/18 12:00 05/17/18 12:00 05/17/18 12:00 General: Oriented x3 HEENT: Atraumatic Neck: Supple Musculoskeletal: Tenderness (right hip point tendernessn right foot turned out. ) Neurological: Normal speech Laboratory Data (last 24 hrs) 05/17/18 05:45: PT 12.0, INR 1.02 05/17/18 05:45: WBC 16.4 H, Hgb 11.9 L, Hct 35.5 L, Plt Count 368 05/17/18 05:45: Sodium 138, Potassium 4.2, BUN 25 H, Creatinine 1.12, Glucose 129 H, Magnesium 1.2 L*, Total Bilirubin 0.6, AST 24, ALT 21, Alkaline Phosphatase 73, Lipase 179 Imagings Data: EXAM DESCRIPTION: RAD - Hip Right 2 View - 05/17/2018 6:34 am CLINICAL HISTORY: PAIN Fall, right hip pain COMPARISON: None FINDINGS: AP pelvis and right hip- multiple projections are submitted Intratrochanteric fracture the proximal right femur is seen with varus angulation. A dislocation is not evident. Bones are osteopenic. this is a 4 part intrertochanteric fracture, displaced and mal aligned - Problems (1) Closed intertrochanteric fracture of right hip Onset Date: ~05/17/18 Current Visit: Yes Status: Acute Plan: she is not NPO today, npo after midnight, clear liquid breakfast. we will plan to take her to the OR at 5:00pm tomorrow for a closed reduction intramedullaty rodding Qualifiers: Encounter type: initial encounter Fracture alignment: nondisplaced Qualified Code(s): S72.144A - Nondisplaced intertrochanteric fracture of right femur, initial encounter for closed fracture
[2018-05-17 15:52] LABS: Urine Appearance CLEAR; Urine Bilirubin NEGATIVE (NEG); Urine Blood NEGATIVE (NEG); Urine Color YELLOW; Urine Glucose NEGATIVE (NEG); Urine Protein NEGATIVE (NEG); Urine Specific Gravity 1.015 (1.005-1.030); Urine Urobilinogen 0.2 mg/dL (0.2-1.0)
[2018-05-17 15:59] LABS: Urine Microscopic Reflex ORDER UMIC
[2018-05-17 16:14] LABS: Urine Bacteria <20 /HPF (<20); Urine RBC <5 /HPF (NONE SEEN)
[2018-05-17 16:16] LABS: Urine Culture Reflex Order NOT NEEDED
--- NOTE | 2018-05-17 17:35 | P.HP ---
Certification for Inpatient Patient admitted to: Inpatient With expected LOS: >2 Midnights Patient will require the following post-hospital care: None Practitioner: I am a practitioner with admitting privileges, knowledge of patient current condition, hospital course, and medical plan of care. Services: Services provided to patient in accordance with Admission requirements found in Title 42 Section 412.3 of the Code of Federal Regulations Patient History Date of Service: 05/17/18 History of Present Illness: This is a 83-year-old female with significant past medical history of hypertension diabetes who presented to the ED after sustaining a fall at home. Patient stated that she had a mechanical fall at the house and thus decided to come to the ER to get a further checked out. Patient denies having any nausea vomiting chest pain abdominal pain dizziness or any other associated symptoms at the this time. Patient stated that she also strained her left ankle her pain is 10/10 on the left hip along with the ankle as well. In the ER patient was found to have left-sided hip fracture and thus was admitted to the hospital for further workup. Allergies Penicillins Allergy (Severe, Verified 05/17/18 10:36) Anaphylaxis adhesive Allergy (Verified 05/17/18 09:39) Rash Sulfa (Sulfonamide Antibiotics) Allergy (Verified 05/17/18 10:36) Anaphylaxis Clindamycin Allergy (Uncoded 05/17/18 10:35) Anaphylaxis Home Medications: Atorvastatin Calcium [Lipitor] 40 mg PO BEDTIME 05/17/18 Brimonidine Tartrate [Alphagan P] 1 drop EACH EYE BID 05/17/18 Carvedilol [Coreg*] 25 mg PO BID 05/17/18 Citalopram [Celexa*] 40 mg PO DAILY 05/17/18 Dexlansoprazole [Dexilant] 60 mg PO DAILY 05/17/18 Fenofibrate [Tricor*] 145 mg PO DAILY 05/17/18 Iron/FA/Vit B-Com W/C [Hemocyte Plus*] 1 tab PO DAILY 05/17/18 Metformin ER [Glucophage ER*] 500 mg PO BID 05/17/18 Pioglitazone [Actos*] 30 mg PO DAILY 05/17/18 Potassium Chloride [Klor-Con 10] 10 meq PO DAILY 05/17/18 Ramipril [Altace*] 10 mg PO DAILY 05/17/18 Tafluprost/Pf [Zioptan 0.0015% Eye Drops] 1 each OP BEDTIME 05/17/18 Tramadol HCl [Ultram] 50 mg PO PRN 05/17/18 Zolpidem Tartrate [Ambien Cr] 12.5 mg PO BEDTIME 05/17/18 hydroCHLOROthiazide [Hydrochlorothiazide*] 25 mg PO DAILY 05/17/18 - Past Medical/Surgical History Has patient received pneumonia vaccine in the past: Yes Diabetic: Yes -: glucoma -: macular degeneration right eye -: HTN -: DM -: COPD -: glucoma surgery 2013 -: Cataract surgery 2007 -: tonsillectomy 21 yo - Family History Mother -: Heart disease Father -: Heart disease - Social History Smoking Status: Former smoker Alcohol use: No CD- Drugs: No Caffeine use: No Place of [facility]idence[facility] Review of Systems 10-point ROS is otherwise unremarkable Physical Examination - Vital Signs Temperature: 97.9 F Blood Pressure: 170/73 Pulse: 89 Respirations: 15 Pulse Ox (%): 99 - Physical Exam General: Alert, In no apparent distress HEENT: Atraumatic, PERRLA, Mucous membr. moist/pink, EOMI, Sclerae nonicteric Neck: Supple, 2+ carotid pulse no bruit, No LAD, Without JVD or thyroid abnormality Respiratory: Clear to auscultation bilaterally, Normal air movement Cardiovascular: Regular rate/rhythm, Normal S1 S2 Gastrointestinal: Normal bowel sounds, No tenderness Musculoskeletal: No tenderness Integumentary: No rashes Neurological: Normal speech, Normal tone, Normal affect, Abnormal gait, Abnormal strength Lymphatics: No axilla or inguinal lymphadenopathy - Studies Laboratory Data (last 24 hrs) 05/17/18 05:45: PT 12.0, INR 1.02 05/17/18 05:45: WBC 16.4 H, Hgb 11.9 L, Hct 35.5 L, Plt Count 368 05/17/18 05:45: Sodium 138, Potassium 4.2, BUN 25 H, Creatinine 1.12, Glucose 129 H, Magnesium 1.2 L*, Total Bilirubin 0.6, AST 24, ALT 21, Alkaline Phosphatase 73, Lipase 179 Assessment and Plan - Problems (Diagnosis) (1) Closed intertrochanteric fracture of right hip Onset Date: ~05/17/18 Current Visit: Yes Status: Acute Plan: Right-sided hip fracture with left-sided leg sprain -x-ray with hip fracture intratrochanteric close to nature -Ortho was consulted. Appreciated recommendations at this time -the patient is currently cleared for surgical intervention. -most likely next 24-48 hr. -IV fluids and pain management:. Qualifiers: Encounter type: initial encounter Fracture alignment: nondisplaced Qualified Code(s): S72.144A - Nondisplaced intertrochanteric fracture of right femur, initial encounter for closed fracture (2) Hypertension Current Visit: Yes Status: Chronic Qualifiers: Hypertension type: essential hypertension Qualified Code(s): I10 - Essential (primary) hypertension (3) Diabetes Current Visit: Yes Status: Chronic Qualifiers: Diabetes mellitus type: type 2 Diabetes mellitus usp insulin use: without usp use Diabetes mellitus complication status: without complication Qualified Code(s): E11.9 - Type 2 diabetes mellitus without complications Discharge Plan: Home Plan to discharge in: Greater than 2 days - Advance Directives Does patient have a Living Will: Yes Does patient have a Durable POA for Healthcare: Yes - Code Status/Comfort Care Code Status Assessed: Yes Critical Care: No
[2018-05-17] MEDS ORDERED: ZOLPIDEM TARTRATE 10 MG TABLET PO PRN (18:00)
[2018-05-17] MEDS: CARVEDILOL 25 MG TAB PO SCH (20:37)
[2018-05-17] MEDS: TAFLUPROST 0.0015% OPTH SCH (20:38)
--- NOTE | 2018-05-17 20:52 | EKG ---
Test Date: 2018-05-17 Test Time: 05:58:16 Laundry Technician: RR MEASUREMENT RESULTS: Intervals: Rate: 97 NC: 150 QRSD: 92 QT: 340 QTc: 431 [place]: P: 49 NC: 150 QRS: -42 T: 49 INTERPRETIVE STATEMENTS: Normal sinus rhythm Left axis deviation Minimal voltage criteria for LVH, may be normal variant Anterior infarct, age undetermined Abnormal ECG Compared to ECG 07/21/2016 11:28:46 Left-axis deviation now present Myocardial infarct finding now present Electronically Signed On 05-17-18 20:48:13 NUTRITION PARTNER by Thomas Gordon
[2018-05-17] MEDS ORDERED: ZOLPIDEM TARTRATE 12.5 MG PO SCH (21:00)
[2018-05-17] MEDS: ATORVASTATIN 40 MG TAB PO SCH (21:17)
[2018-05-17] MEDS: MORPHINE 4 MG/ML SYR IV PRN (21:18)
[2018-05-17] MEDS ORDERED: MAGNESIUM SULFATE 1 gm IVPB 1 GM/100 ML BAG IV ONE (23:00)
[2018-05-18] MEDS: MORPHINE 4 MG/ML SYR IV PRN ×5 (00:56→21:27)
[2018-05-18] MEDS: NA CHLORIDE 0.9% 1,000 ML IV SCH ×2 (05:53→15:36)
[2018-05-18 06:17] LABS: Absolute Lymphocytes (CBC) 0.6 K/uL (0.7-4.9); Absolute Monocytes 0.8 K/uL (0.1-1.3); Absolute Neutrophil 6.1 K/uL (1.8-8.0); Basophils % 0.4 % (0-1.3); Eosinophils % 2.8 % (0-4.4); Hematocrit 31.5 % (36.0-45.0); Lymphocytes % 8.2 % (15.3-44.8); MPV 8.5 fL (7.6-11.3); Monocytes % 9.7 % (3.3-12.3); RBC Red Blood Cell Count 3.45 M/uL (3.86-4.86)
[2018-05-18 06:29] LABS: Potassium 4.3 mmol/L (3.5-5.1)
[2018-05-18] MEDS: PANTOPRAZOLE 40MG TABLET PO SCH (07:30)
[2018-05-18] MEDS ORDERED: HOME MED 1 EA UNK (Dexlansoprazole [Dexilant] 60 MG) PO SCH (09:00)
[2018-05-18] MEDS: FE SULF/FA/VIT B COMP & C TAB PO SCH (09:00)
[2018-05-18] MEDS: CITALOPRAM 10 MG TABLET PO SCH (09:00)
[2018-05-18] MEDS: hydroCHLOROthiazide 25 MG TAB PO SCH (09:00)
[2018-05-18] MEDS: RAMIPRIL 5 MG CAP PO SCH (09:00)
[2018-05-18] MEDS: FENOFIBRATE 160 MG TAB PO SCH (09:00)
[2018-05-18] MEDS: CARVEDILOL 25 MG TAB PO SCH ×2 (10:11→21:33)
--- NOTE | 2018-05-18 14:45 | P.PN ---
Subjective Date of Service: 05/18/18 Patient seen in the colon. Chart reviewed. Case discussed with orthopedic. Currently scheduled for surgery this P.M. Review of Systems 10-point ROS is otherwise unremarkable Physical Examination - Vital Signs Temperature: 98.5 F Blood Pressure: 141/63 Pulse: 88 Respirations: 16 Pulse Ox (%): 97 - Physical Exam General: Alert, In no apparent distress HEENT: Atraumatic, PERRLA, EOMI Neck: Supple, JVD not distended Respiratory: Clear to auscultation bilaterally, Normal air movement Cardiovascular: Regular rate/rhythm, Normal S1 S2 Gastrointestinal: Normal bowel sounds, No tenderness Musculoskeletal: No tenderness Integumentary: No rashes Neurological: Normal speech, Normal tone, Normal affect Lymphatics: No axilla or inguinal lymphadenopathy - Studies Medications List Reviewed: Yes Assessment And Plan - Current Problems (Diagnosis) (1) Closed intertrochanteric fracture of right hip Onset Date: ~05/17/18 Current Visit: Yes Status: Acute Plan: Right-sided hip fracture with left-sided leg sprain -x-ray with hip fracture intratrochanteric close to nature -Ortho was consulted. Appreciated recommendations at this time -the patient is currently cleared for surgical intervention. -Surgery Planned for today -IV fluids and pain management:. 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
[2018-05-18] MEDS ORDERED: LIDOCAINE 2% MPF 5 ML VIAL ONE (16:37)
[2018-05-18] MEDS ORDERED: PROPOFOL 200 MG/20 ML VIAL IV ONE (16:37)
[2018-05-18] MEDS ORDERED: NA CHLORIDE 0.9% 1,000 ML ONE ×2 (17:04→19:42)
[2018-05-18] MEDS ORDERED: FENTANYL CITR 100 MCG/2 ML ONE ×4 (17:04→19:39)
[2018-05-18] MEDS ORDERED: CEFAZOLIN 2GM (PREMIX IV) 2 GM/50 ML BAG ONE (17:10)
[2018-05-18] MEDS ORDERED: Phenylephrine HCl 10 MG/ML 1 ML VIAL ONE (18:15)
[2018-05-18] MEDS ORDERED: KETOROLAC 30 MG/ML INJ ONE (18:45)
[2018-05-18] MEDS ORDERED: DEXAMETHASONE 10 MG/ML VIAL ONE (18:45)
[2018-05-18] MEDS ORDERED: ONDANSETRON 4 MG/2 ML VIAL ONE (18:45)
[2018-05-18] MEDS ORDERED: FENTANYL CITR 100 MCG/2 ML IV ONE ×4 (19:30→20:00)
--- NOTE | 2018-05-18 20:17 | RAD REPORT ---
EXAM DESCRIPTION: RAD - Hip In Or - 05/18/2018 8:04 pm FINDINGS: There were 24 portable C-arm views obtained during fluoroscopic assisted placement of frac ture fixation hardware. Fluoro time was 5 minutes. Images show stepwise placement of surgical hardware and bone realignment. No suspicious or unexpected finding.
--- NOTE | 2018-05-18 20:17 | RAD REPORT ---
EXAM DESCRIPTION: RAD - Pelvis - 05/18/2018 8:05 pm CLINICAL HISTORY: Right femur fracture fixation COMPARISON: None. TECHNIQUE: AP imaging of the pelvis was obtained. FINDINGS: Two views of the lower pelvis and hip joints obtained. Fracture hardware has been placed i n the proximal right femur. Fracture fragments are in anatomic alignment position. No suspicious or u nexpected finding.
[2018-05-18] MEDS ORDERED: ONDANSETRON 4 MG/2 ML VIAL IV PRN (20:55)
[2018-05-18] MEDS ORDERED: HYDROCODONE/APAP 10/325 TAB PO PRN (21:06)
[2018-05-18] MEDS: NACHLORIDE 0.45% 1,000 ML IV SCH (21:26)
[2018-05-18] MEDS: TAFLUPROST 0.0015% OPTH SCH (21:26)
[2018-05-18] MEDS: ATORVASTATIN 40 MG TAB PO SCH (21:35)
[2018-05-18] MEDS ORDERED: NALOXONE 0.4 MG/ML VIAL IV PRN (22:33)
[2018-05-18] MEDS ORDERED: MORPHINE/NS PCA 50 MG/50 ML PCA.SYRING IV PRN (22:33)
[2018-05-18] MEDS: HYDROCODONE/APAP 10/325 TAB PO PRN (23:54)
[2018-05-19] MEDS ORDERED: CEFAZOLIN/NS 1gm 1 GM/50 ML BAG IVPB SCH ×2 (02:00)
[2018-05-19] MEDS ORDERED: CEFAZOLIN 1GM (PREMIX IV) 1 GM/50 ML BAG ONE (02:06)
[2018-05-19 05:09] LABS: Absolute Lymphocytes (CBC) 0.1 K/uL (0.7-4.9); Absolute Monocytes 0.4 K/uL (0.1-1.3); Absolute Neutrophil 7.9 K/uL (1.8-8.0); Basophils % 0.2 % (0-1.3); Lymphocytes % 1.6 % (15.3-44.8); MPV 8.6 fL (7.6-11.3); Monocytes % 5.2 % (3.3-12.3); RBC Red Blood Cell Count 3.05 M/uL (3.86-4.86)
[2018-05-19 05:18] LABS: Magnesium 1.5 mg/dL (1.8-2.4); Potassium 5.2 mmol/L (3.5-5.1)
--- NOTE | 2018-05-19 05:20 | OP ---
Surgeon: Alen Boyd MD Inventory Control Associate: Shake Packer: Dejan. Date of Service: 05/18/2018 Preoperative Diagnosis: Right reverse obliquity complex intertrochanteric- subtrochanteric fracture. Postoperative Diagnosis: Right reverse obliquity complex intertrochanteric- subtrochanteric fracture. Procedure Performed: Intramedullary rodding, right intertrochanteric- subtrochanteric femur fracture. Complications: None. Disposition: Recovery room, stable. Operative Report In Detail: The patient was taken to the operative suite, placed in supine position, induced anesthesia. Right hip was prepped and draped in usual sterile fashion. After reduction maneuvers were performed, we realized it was going be quite a difficult reduction. There was no control of the femoral head portion. The reduction was performed as best as possible. Guidewire was passed without difficulty. Biplanar radiography verified placement of the guidewire. Lag screw was then placed. It was then realized by rotating that we could almost anatomically reduced the head and neck portion to the shaft of the femur. This was done and locked into place. A distal interlocking screw was placed. Patient tolerated procedure well. Reversed from anesthesia and returned to the recovery room shortly. YUNIEL/ARNALDO Voice ID: [id number] Report ID: [id number] DEVON
[2018-05-19] MEDS ORDERED: Magnesium Sulfate 2gm IVPB 2 G/50 ML BAG IV ONE (05:39)
--- NOTE | 2018-05-19 08:39 | P.PN ---
Subjective Date of Service: 05/19/18 Review of Systems 10-point ROS is otherwise unremarkable Physical Examination - Vital Signs Temperature: 98.5 F Blood Pressure: 115/57 Pulse: 74 Respirations: 13 Pulse Ox (%): 98 - Physical Exam General: In no apparent distress HEENT: Atraumatic Musculoskeletal: Other (dressings c/d/i, N/V/I) - Studies Medications List Reviewed: Yes Assessment And Plan - Current Problems (Diagnosis) (1) Closed intertrochanteric fracture of right hip Onset Date: ~05/17/18 Current Visit: Yes Status: Acute Plan: touch down weight baring only for 6 weeks post op. anticoagulation for 28 days post op, follow up in office 2 weeks post op, she can transfer to a nursing or rehab facility when stable. Qualifiers: Encounter type: initial encounter Fracture alignment: nondisplaced Qualified Code(s): S72.144A - Nondisplaced intertrochanteric fracture of right femur, initial encounter for closed fracture
[2018-05-19] MEDS: hydroCHLOROthiazide 25 MG TAB PO SCH (08:41)
[2018-05-19] MEDS: CITALOPRAM 10 MG TABLET PO SCH (08:41)
[2018-05-19] MEDS: PANTOPRAZOLE 40MG TABLET PO SCH (08:42)
[2018-05-19] MEDS: HYDROCODONE/APAP 10/325 TAB PO PRN ×3 (08:42→19:52)
[2018-05-19] MEDS: FENOFIBRATE 160 MG TAB PO SCH (08:42)
[2018-05-19] MEDS ORDERED: CEFAZOLIN/SWI 1gm 1 GM/10 ML SYR IV SCH ×2 (10:00)
[2018-05-19] MEDS: NACHLORIDE 0.45% 1,000 ML IV SCH ×2 (10:05→23:34)
[2018-05-19] MEDS: CARVEDILOL 25 MG TAB PO SCH ×2 (10:05→20:56)
[2018-05-19] MEDS: RAMIPRIL 5 MG CAP PO SCH (10:05)
[2018-05-19] MEDS: MORPHINE 4 MG/ML SYR IV PRN (12:06)
[2018-05-19] MEDS: FE SULF/FA/VIT B COMP & C TAB PO SCH (12:22)
[2018-05-19] MEDS: ENOXAPARIN 30 MG/0.3 ML SQ SCH ×2 (12:38→20:57)
--- NOTE | 2018-05-19 14:40 | P.PN ---
Subjective Date of Service: 05/19/18 Patient seen in the colon. Chart reviewed. Case discussed with orthopedic. C/ o Of having pain to the affected area. S.P ORIF POD # 1 Review of Systems 10-point ROS is otherwise unremarkable Physical Examination - Vital Signs Temperature: 98.5 F Blood Pressure: 116/67 Pulse: 80 Respirations: 20 Pulse Ox (%): 98 - Physical Exam General: Alert, In no apparent distress HEENT: Atraumatic, PERRLA, EOMI Neck: Supple, JVD not distended Respiratory: Clear to auscultation bilaterally, Normal air movement Cardiovascular: Regular rate/rhythm, Normal S1 S2 Gastrointestinal: Normal bowel sounds, No tenderness Musculoskeletal: No tenderness Integumentary: No rashes Neurological: Normal speech, Normal tone, Normal affect Lymphatics: No axilla or inguinal lymphadenopathy - Studies Medications List Reviewed: Yes Assessment And Plan - Current Problems (Diagnosis) (1) Closed intertrochanteric fracture of right hip Onset Date: ~05/17/18 Current Visit: Yes Status: Acute Plan: Right-sided hip fracture with left-sided leg sprain -x-ray with hip fracture intratrochanteric close to nature -Ortho was consulted. Appreciated recommendations at this time -S/P ORIF POD # 1 -On lovenox now -PT consulted. 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 Will transfer to the regular medical surgical floor this time. Does appear to be hemodynamically stable PT consulted awaiting evaluation at this time Discharge Plan: Other Plan to discharge in: 48 Hours - Code Status/Comfort Care Code Status Assessed: Yes Critical Care: No
[2018-05-19] MEDS: ATORVASTATIN 40 MG TAB PO SCH (20:55)
[2018-05-19] MEDS: TAFLUPROST 0.0015% OPTH SCH (21:00)
[2018-05-20 06:24] LABS: Absolute Lymphocytes (CBC) 0.6 K/uL (0.7-4.9); Absolute Monocytes 1.1 K/uL (0.1-1.3); Absolute Neutrophil 8.1 K/uL (1.8-8.0); Basophils % 0.2 % (0-1.3); Eosinophils % 0.9 % (0-4.4); Hematocrit 25.3 % (36.0-45.0); Lymphocytes % 5.5 % (15.3-44.8); MPV 8.8 fL (7.6-11.3); Monocytes % 11.4 % (3.3-12.3); RBC Red Blood Cell Count 2.76 M/uL (3.86-4.86)
[2018-05-20 06:45] LABS: Magnesium 2.1 mg/dL (1.8-2.4); Potassium 4.8 mmol/L (3.5-5.1)
[2018-05-20] MEDS: RAMIPRIL 5 MG CAP PO SCH (08:51)
[2018-05-20] MEDS: hydroCHLOROthiazide 25 MG TAB PO SCH (08:51)
[2018-05-20] MEDS: ENOXAPARIN 30 MG/0.3 ML SQ SCH ×2 (08:51→20:41)
[2018-05-20] MEDS: CITALOPRAM 10 MG TABLET PO SCH (08:52)
[2018-05-20] MEDS: HYDROCODONE/APAP 10/325 TAB PO PRN ×3 (08:52→18:42)
[2018-05-20] MEDS: FE SULF/FA/VIT B COMP & C TAB PO SCH (08:52)
[2018-05-20] MEDS: PANTOPRAZOLE 40MG TABLET PO SCH (08:53)
[2018-05-20] MEDS: FENOFIBRATE 160 MG TAB PO SCH (08:53)
[2018-05-20] MEDS: CARVEDILOL 25 MG TAB PO SCH ×2 (08:53→20:40)
[2018-05-20] MEDS: NACHLORIDE 0.45% 1,000 ML IV SCH ×2 (11:48→20:43)
--- NOTE | 2018-05-20 15:19 | P.PN ---
Subjective Date of Service: 05/20/18 Patient seen in the colon. Chart reviewed. Case discussed with orthopedic. C/ o Of having pain to the affected area. S.P ORIF POD # 2 Review of Systems 10-point ROS is otherwise unremarkable Physical Examination - Vital Signs Temperature: 98.0 F Blood Pressure: 128/58 Pulse: 86 Respirations: 19 Pulse Ox (%): 95 - Physical Exam General: Alert, In no apparent distress HEENT: Atraumatic, PERRLA, EOMI Neck: Supple, JVD not distended Respiratory: Clear to auscultation bilaterally, Normal air movement Cardiovascular: Regular rate/rhythm, Normal S1 S2 Gastrointestinal: Normal bowel sounds, No tenderness Musculoskeletal: Erythema, Tenderness, Warmth Integumentary: No rashes Neurological: Normal speech, Normal tone, Normal affect Lymphatics: No axilla or inguinal lymphadenopathy - Studies Medications List Reviewed: Yes Assessment And Plan - Current Problems (Diagnosis) (1) Closed intertrochanteric fracture of right hip Onset Date: ~05/17/18 Current Visit: Yes Status: Acute Plan: Right-sided hip fracture with left-sided leg sprain -x-ray with hip fracture intratrochanteric close to nature -Ortho was consulted. Appreciated recommendations at this time -S/P ORIF POD # 2 -On lovenox now -PT consulted. 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 Patient will be a good candidate for alf facility given the intramedullary xiomy in the right hip and the left leg sprain. Patient can benefit from rehab at alf facility and be observed by a physician on the daily progress also maintain her diabetes under control along with blood pressure. Will await case management Reccs regarding placement Discharge Plan: Other Plan to discharge in: 72 Hours - Code Status/Comfort Care Code Status Assessed: Yes Critical Care: No
--- NOTE | 2018-05-20 17:22 | P.PN ---
Subjective Date of Service: 05/20/18 Subjective: No new changes Review of Systems 10-point ROS is otherwise unremarkable Physical Examination - Vital Signs Temperature: 98.5 F Blood Pressure: 120/57 Pulse: 87 Respirations: 18 Pulse Ox (%): 95 - Physical Exam General: Oriented x3 HEENT: Normocephalic Neck: Supple Musculoskeletal: Other (aquacell dressing c/d/i) Integumentary: No rashes, No breakdown Neurological: Normal speech - Studies Medications List Reviewed: Yes Assessment And Plan - Current Problems (Diagnosis) (1) Closed intertrochanteric fracture of right hip Onset Date: ~05/17/18 Current Visit: Yes Status: Acute Plan: touch down weight baring only for 6 weeks post op. anticoagulation for 28 days post op, follow up in office 2 weeks post op, she can transfer to a nursing or rehab facility when stable. Qualifiers: Encounter type: initial encounter Fracture alignment: nondisplaced Qualified Code(s): S72.144A - Nondisplaced intertrochanteric fracture of right femur, initial encounter for closed fracture
[2018-05-20] MEDS: ONDANSETRON 4 MG/2 ML VIAL IV PRN (18:18)
[2018-05-20] MEDS: ATORVASTATIN 40 MG TAB PO SCH (20:39)
[2018-05-20] MEDS: TAFLUPROST 0.0015% OPTH SCH (21:00)
[2018-05-20] MEDS ORDERED: METHYLPREDNISOLONE 125 MG INJ IV ONE (21:45)
[2018-05-21] MEDS: ACETAMINOPHEN 500 MG TAB PO PRN (04:14)
[2018-05-21] MEDS: ONDANSETRON 4 MG/2 ML VIAL IV PRN ×3 (04:14→17:15)
[2018-05-21] MEDS: PANTOPRAZOLE 40MG TABLET PO SCH (07:45)
[2018-05-21] MEDS: ENOXAPARIN 30 MG/0.3 ML SQ SCH ×2 (08:59→21:18)
[2018-05-21] MEDS: CARVEDILOL 25 MG TAB PO SCH ×2 (08:59→21:18)
[2018-05-21] MEDS: FENOFIBRATE 160 MG TAB PO SCH (08:59)
[2018-05-21] MEDS: HYDROCODONE/APAP 10/325 TAB PO PRN ×3 (09:00→22:15)
[2018-05-21] MEDS: CITALOPRAM 10 MG TABLET PO SCH (09:00)
[2018-05-21] MEDS: hydroCHLOROthiazide 25 MG TAB PO SCH (09:00)
[2018-05-21] MEDS: FE SULF/FA/VIT B COMP & C TAB PO SCH (09:01)
[2018-05-21] MEDS: RAMIPRIL 5 MG CAP PO SCH (09:02)
[2018-05-21] MEDS: NACHLORIDE 0.45% 1,000 ML IV SCH ×2 (09:03→21:24)
--- NOTE | 2018-05-21 13:28 | P.PN ---
Subjective Date of Service: 05/21/18 Patient seen in the colon. Chart reviewed. Case discussed with orthopedic. C/ o Of having pain to the affected area. S.P ORIF POD # 3 Review of Systems 10-point ROS is otherwise unremarkable Physical Examination - Vital Signs Temperature: 98.6 F Blood Pressure: 121/60 Pulse: 83 Respirations: 18 Pulse Ox (%): 97 - Physical Exam General: Alert, In no apparent distress HEENT: Atraumatic, PERRLA, EOMI Neck: Supple, JVD not distended Respiratory: Clear to auscultation bilaterally, Normal air movement Cardiovascular: Regular rate/rhythm, Normal S1 S2 Gastrointestinal: Normal bowel sounds, No tenderness Musculoskeletal: No tenderness Integumentary: No rashes Neurological: Normal speech, Normal tone, Normal affect Lymphatics: No axilla or inguinal lymphadenopathy - Studies Medications List Reviewed: Yes Assessment And Plan - Current Problems (Diagnosis) (1) Closed intertrochanteric fracture of right hip Onset Date: ~05/17/18 Current Visit: Yes Status: Acute Plan: Right-sided hip fracture with left-sided leg sprain -x-ray with hip fracture intratrochanteric close to nature -Ortho was consulted. Appreciated recommendations at this time -S/P ORIF POD # 3 -On lovenox now -PT consulted. Appreciate Reccs Qualifiers: Encounter type: initial encounter Fracture alignment: nondisplaced Qualified Code(s): S72.144A - Nondisplaced intertrochanteric fracture of right femur, initial encounter for closed fracture (2) Hypertension Current Visit: Yes Status: Chronic Plan: Doing well overall restarted on home medication Qualifiers: Hypertension type: essential hypertension Qualified Code(s): I10 - Essential (primary) hypertension (3) Diabetes Current Visit: Yes Status: Chronic Qualifiers: Diabetes mellitus type: type 2 Diabetes mellitus petroleum terminal plant operator insulin use: without petroleum terminal plant operator use Diabetes mellitus complication status: without complication Qualified Code(s): E11.9 - Type 2 diabetes mellitus without complications - Plan Currently pending placement at this time. Patient will be a good candidate for [facility] facility given the intramedullary xiomy in the right hip and the left leg sprain. Patient can benefit from rehab at penitentiary facility and be observed by a physician on the daily progress also maintain her diabetes under control along with blood pressure. Will await case management Reccs regarding placement Discharge Plan: Other Plan to discharge in: 24 Hours - Code Status/Comfort Care Code Status Assessed: Yes Critical Care: No
[2018-05-21] MEDS: TAFLUPROST 0.0015% OPTH SCH (21:00)
[2018-05-21] MEDS: ATORVASTATIN 40 MG TAB PO SCH (21:19)
[2018-05-22] MEDS: HYDROCODONE/APAP 10/325 TAB PO PRN ×4 (04:15→22:14)
[2018-05-22] MEDS: ONDANSETRON 4 MG/2 ML VIAL IV PRN ×2 (08:56→15:44)
[2018-05-22] MEDS: RAMIPRIL 5 MG CAP PO SCH (08:58)
[2018-05-22] MEDS: CITALOPRAM 10 MG TABLET PO SCH (08:58)
[2018-05-22] MEDS: FE SULF/FA/VIT B COMP & C TAB PO SCH (08:58)
[2018-05-22] MEDS: CARVEDILOL 25 MG TAB PO SCH ×2 (08:59→20:13)
[2018-05-22] MEDS: ENOXAPARIN 30 MG/0.3 ML SQ SCH ×2 (08:59→20:13)
[2018-05-22] MEDS: PANTOPRAZOLE 40MG TABLET PO SCH (08:59)
[2018-05-22] MEDS: FENOFIBRATE 160 MG TAB PO SCH (09:01)
[2018-05-22] MEDS: hydroCHLOROthiazide 25 MG TAB PO SCH (09:05)
--- NOTE | 2018-05-22 10:20 | P.PN ---
Subjective Date of Service: 05/22/18 Patient seen in the colon. Chart reviewed. Case discussed with orthopedic. No C.o Overnight. Awaiting SNF pending. S.P ORIF POD # 4 Review of Systems 10-point ROS is otherwise unremarkable Physical Examination - Vital Signs Temperature: 97.6 F Blood Pressure: 149/68 Pulse: 86 Respirations: 16 Pulse Ox (%): 96 - Physical Exam General: Alert, In no apparent distress HEENT: Atraumatic, PERRLA, EOMI Neck: Supple, JVD not distended Respiratory: Clear to auscultation bilaterally, Normal air movement Cardiovascular: Regular rate/rhythm, Normal S1 S2 Gastrointestinal: Normal bowel sounds, No tenderness Musculoskeletal: No tenderness Integumentary: No rashes Neurological: Normal speech, Normal tone, Normal affect Lymphatics: No axilla or inguinal lymphadenopathy - Studies Medications List Reviewed: Yes Assessment And Plan - Current Problems (Diagnosis) (1) Closed intertrochanteric fracture of right hip Onset Date: ~05/17/18 Current Visit: Yes Status: Acute Plan: Right-sided hip fracture with left-sided leg sprain -x-ray with hip fracture intratrochanteric close to nature -Ortho was consulted. Appreciated recommendations at this time -S/P ORIF POD # 4 -On lovenox now -PT consulted. Appreciate Re[facility] Qualifiers: Encounter type: initial encounter Fracture alignment: nondisplaced Qualified Code(s): S72.144A - Nondisplaced intertrochanteric fracture of right femur, initial encounter for closed fracture (2) Hypertension Current Visit: Yes Status: Chronic Plan: Doing well overall restarted on home medication Qualifiers: Hypertension type: essential hypertension Qualified Code(s): I10 - Essential (primary) hypertension (3) Diabetes Current Visit: Yes Status: Chronic Qualifiers: Diabetes mellitus type: type 2 Diabetes mellitus jail insulin use: without jail use Diabetes mellitus complication status: without complication Qualified Code(s): E11.9 - Type 2 diabetes mellitus without complications - Plan Currently pending placement at this time. Patient will be a good candidate for senior care facility given the intramedullary xiomy in the right hip and the left leg sprain. Patient can benefit from rehab at senior care facility and be observed by a physician on the daily progress also maintain her diabetes under control along with blood pressure. Will await case management Reccs regarding placement Discharge Plan: Other Plan to discharge in: 72 Hours - Code Status/Comfort Care Code Status Assessed: Yes Critical Care: No
[2018-05-22] MEDS: NACHLORIDE 0.45% 1,000 ML IV SCH ×2 (11:40→23:20)
[2018-05-22] MEDS: ATORVASTATIN 40 MG TAB PO SCH (20:14)
[2018-05-22] MEDS: TAFLUPROST 0.0015% OPTH SCH (21:00)
[2018-05-23] MEDS: HYDROCODONE/APAP 10/325 TAB PO PRN ×4 (03:36→21:06)
[2018-05-23] MEDS: PANTOPRAZOLE 40MG TABLET PO SCH (07:50)
[2018-05-23] MEDS: CITALOPRAM 10 MG TABLET PO SCH (08:34)
[2018-05-23] MEDS: ENOXAPARIN 30 MG/0.3 ML SQ SCH ×2 (08:35→21:06)
[2018-05-23] MEDS: FE SULF/FA/VIT B COMP & C TAB PO SCH (08:35)
[2018-05-23] MEDS: hydroCHLOROthiazide 25 MG TAB PO SCH (08:35)
[2018-05-23] MEDS: ONDANSETRON 4 MG/2 ML VIAL IV PRN ×2 (08:36→21:36)
[2018-05-23] MEDS: RAMIPRIL 5 MG CAP PO SCH (08:37)
[2018-05-23] MEDS: CARVEDILOL 25 MG TAB PO SCH ×2 (08:37→21:06)
[2018-05-23] MEDS: FENOFIBRATE 160 MG TAB PO SCH (09:00)
--- NOTE | 2018-05-23 10:22 | P.PN ---
Subjective Date of Service: 05/23/18 Patient seen in the colon. Chart reviewed. Case discussed with orthopedic. No C.o Overnight. Awaiting SNF pending. S.P ORIF POD # 5 Review of Systems 10-point ROS is otherwise unremarkable Physical Examination - Vital Signs Temperature: 97.9 F Blood Pressure: 138/63 Pulse: 90 Respirations: 18 Pulse Ox (%): 96 - Physical Exam General: Alert, In no apparent distress HEENT: Atraumatic, PERRLA, EOMI Neck: Supple, JVD not distended Respiratory: Clear to auscultation bilaterally, Normal air movement Cardiovascular: Regular rate/rhythm, Normal S1 S2 Gastrointestinal: Normal bowel sounds, No tenderness Musculoskeletal: No tenderness Integumentary: No rashes Neurological: Normal speech, Normal tone, Normal affect Lymphatics: No axilla or inguinal lymphadenopathy - Studies Medications List Reviewed: Yes Assessment And Plan - Current Problems (Diagnosis) (1) Closed intertrochanteric fracture of right hip Onset Date: ~05/17/18 Current Visit: Yes Status: Acute Plan: Right-sided hip fracture with left-sided leg sprain -x-ray with hip fracture intratrochanteric close to nature -Ortho was consulted. Appreciated recommendations at this time -S/P ORIF POD # 5 -On lovenox now -PT consulted. Appreciate Recc[facility] Qualifiers: Encounter type: initial encounter Fracture alignment: nondisplaced Qualified Code(s): S72.144A - Nondisplaced intertrochanteric fracture of right femur, initial encounter for closed fracture (2) Hypertension Current Visit: Yes Status: Chronic Plan: Doing well overall restarted on home medication Qualifiers: Hypertension type: essential hypertension Qualified Code(s): I10 - Essential (primary) hypertension (3) Diabetes Current Visit: Yes Status: Chronic Qualifiers: Diabetes mellitus type: type 2 Diabetes mellitus [facility] insulin use: without [facility] use Diabetes mellitus complication status: without complication Qualified Code(s): E11.9 - Type 2 diabetes mellitus without complications - Plan Currently pending placement at this time. Patient will be a good candidate for alf facility given the intramedullary xiomy in the right hip and the left leg sprain. Patient can benefit from rehab at alf facility and be observed by a physician on the daily progress also maintain her diabetes under control along with blood pressure. Will await case management Reccs regarding placement Discharge Plan: Home Plan to discharge in: 48 Hours - Code Status/Comfort Care Code Status Assessed: Yes Critical Care: No
[2018-05-23] MEDS: NACHLORIDE 0.45% 1,000 ML IV SCH ×3 (11:46→21:07)
[2018-05-23] MEDS: TAFLUPROST 0.0015% OPTH SCH (21:00)
[2018-05-23] MEDS: ATORVASTATIN 40 MG TAB PO SCH (21:06)
[2018-05-24] MEDS: NACHLORIDE 0.45% 1,000 ML IV SCH ×4 (02:00→20:40)
[2018-05-24] MEDS: HYDROCODONE/APAP 10/325 TAB PO PRN ×2 (05:10→08:51)
[2018-05-24] MEDS: ONDANSETRON 4 MG/2 ML VIAL IV PRN ×2 (05:20→08:50)
[2018-05-24] MEDS: PANTOPRAZOLE 40MG TABLET PO SCH (08:49)
[2018-05-24] MEDS: CITALOPRAM 10 MG TABLET PO SCH (08:50)
[2018-05-24] MEDS: hydroCHLOROthiazide 25 MG TAB PO SCH (08:50)
[2018-05-24] MEDS: CARVEDILOL 25 MG TAB PO SCH ×2 (08:51→20:43)
[2018-05-24] MEDS: RAMIPRIL 5 MG CAP PO SCH (08:52)
[2018-05-24] MEDS: ENOXAPARIN 30 MG/0.3 ML SQ SCH ×2 (08:52→20:44)
[2018-05-24] MEDS: FENOFIBRATE 160 MG TAB PO SCH (08:52)
[2018-05-24] MEDS: FE SULF/FA/VIT B COMP & C TAB PO SCH (08:52)
[2018-05-24] MEDS ORDERED: MAGNESIUM HYDROXIDE 8% 30 ML PO PRN ×2 (09:26→11:15)
--- NOTE | 2018-05-24 10:32 | RAD REPORT ---
EXAM DESCRIPTION: RAD - Abdomen 1 View (KUB) - 05/24/2018 10:18 am CLINICAL HISTORY: Abdomen pain. FINDINGS: The bowel gas pattern is unremarkable. Intramedullary xiomy and compression screw affix a proximal right femoral fracture. There appears to be greater separation of the fracture fragments when compared to May 18, 2018 ex am. This may simply be secondary to different positioning. If clinically indicated plain film series of the right hip could be obtained for re-evaluation
--- NOTE | 2018-05-24 11:18 | P.PN ---
Subjective Date of Service: 05/24/18 Patient seen in the colon. Chart reviewed. Case discussed with orthopedic. Awaiting SNF pending. S.P ORIF POD # 6. This morning patient complains of having a. Has been not able to keep anything down. Patient not complaining of having any abdominal pain or any other associated symptoms. Patient also has very limited mobility due to pain. Review of Systems 10-point ROS is otherwise unremarkable Physical Examination - Vital Signs Temperature: 98.5 F Blood Pressure: 170/74 Pulse: 82 Respirations: 20 Pulse Ox (%): 95 - Physical Exam General: Alert, In no apparent distress HEENT: Atraumatic, PERRLA, EOMI Neck: Supple, JVD not distended Respiratory: Clear to auscultation bilaterally, Normal air movement Cardiovascular: Regular rate/rhythm, Normal S1 S2 Gastrointestinal: Normal bowel sounds, No tenderness Musculoskeletal: No tenderness Integumentary: No rashes Neurological: Normal speech, Normal tone, Normal affect Lymphatics: No axilla or inguinal lymphadenopathy - Studies Medications List Reviewed: Yes Assessment And Plan - Current Problems (Diagnosis) (1) Closed intertrochanteric fracture of right hip Onset Date: ~05/17/18 Current Visit: Yes Status: Acute Plan: Right-sided hip fracture with left-sided leg sprain -x-ray with hip fracture intratrochanteric close to nature -Ortho was consulted. Appreciated recommendations at this time -S/P ORIF POD # 6 -On lovenox now -PT consulted. Appreciate [facility] Qualifiers: Encounter type: initial encounter Fracture alignment: nondisplaced Qualified Code(s): S72.144A - Nondisplaced intertrochanteric fracture of right femur, initial encounter for closed fracture (2) Hypertension Current Visit: Yes Status: Chronic Plan: Doing well overall restarted on home medication Qualifiers: Hypertension type: essential hypertension Qualified Code(s): I10 - Essential (primary) hypertension (3) Diabetes Current Visit: Yes Status: Chronic Qualifiers: Diabetes mellitus type: type 2 Diabetes mellitus termination clerk insulin use: without termination clerk use Diabetes mellitus complication status: without complication Qualified Code(s): E11.9 - Type 2 diabetes mellitus without complications (4) Nausea Current Visit: Yes Status: Acute Plan: Most likely secondary to inactivity and fecal impaction. -KUB negative for any obstruction -patient to get Colace b.i.d. along with milk of magnesium -hold pain medication at this time - Plan Currently pending placement at this time. Patient will be a good candidate for long term facility given the intramedullary xiomy in the right hip and the left leg sprain. Patient can benefit from rehab at long term facility and be observed by a physician on the daily progress also maintain her diabetes under control along with blood pressure. Will await case management Reccs regarding placement Discharge Plan: Long Term Plan to discharge in: Greater than 2 days - Code Status/Comfort Care Code Status Assessed: Yes Critical Care: No
[2018-05-24] MEDS: DOCUSATE NA 100 MG CAP PO SCH ×2 (12:26→20:43)
[2018-05-24] MEDS: TRAMADOL HCL 50 MG TAB PO PRN ×2 (14:06→22:01)
[2018-05-24] MEDS: ATORVASTATIN 40 MG TAB PO SCH (20:43)
[2018-05-24] MEDS: TAFLUPROST 0.0015% OPTH SCH (20:53)
[2018-05-24] MEDS: MAGNESIUM CITRATE 300 ML BOT PO SCH (22:01)
[2018-05-25] MEDS: NACHLORIDE 0.45% 1,000 ML IV SCH ×2 (04:52→17:11)
[2018-05-25] MEDS: TRAMADOL HCL 50 MG TAB PO PRN ×2 (06:34→17:15)
[2018-05-25] MEDS: PANTOPRAZOLE 40MG TABLET PO SCH (07:30)
[2018-05-25] MEDS: ONDANSETRON 4 MG/2 ML VIAL IV PRN (09:17)
[2018-05-25] MEDS: CITALOPRAM 10 MG TABLET PO SCH (09:17)
[2018-05-25] MEDS: ENOXAPARIN 30 MG/0.3 ML SQ SCH ×2 (09:17→21:46)
[2018-05-25] MEDS: RAMIPRIL 5 MG CAP PO SCH (09:18)
[2018-05-25] MEDS: hydroCHLOROthiazide 25 MG TAB PO SCH (09:18)
[2018-05-25] MEDS: FE SULF/FA/VIT B COMP & C TAB PO SCH (09:18)
[2018-05-25] MEDS: FENOFIBRATE 160 MG TAB PO SCH (09:18)
[2018-05-25] MEDS: DOCUSATE NA 100 MG CAP PO SCH ×2 (09:19→21:46)
[2018-05-25] MEDS: CARVEDILOL 25 MG TAB PO SCH ×2 (09:19→21:49)
[2018-05-25] MEDS ORDERED: BISACODYL E.C. 5 MG TAB PO PRN (11:24)
[2018-05-25] MEDS ORDERED: PROMETHAZINE 25 MG/ML VIAL IV PRN (11:24)
[2018-05-25] MEDS ORDERED: FLEET ENEMA ADULT PR ONE (14:49)
[2018-05-25] MEDS ORDERED: MAGNESIUM CITRATE 300 ML BOT PO SCH (15:00)
--- NOTE | 2018-05-25 20:29 | PN ---
Date of Progress Note: 05/25/2018 Code Status: Full code. Subjective: The patient is seen and examined. Chart reviewed and case discussed with RN. The patient's daughter at the bedside. The patient is again complaining of some nausea, vomiting, abdominal distention with no bowel movements. The patient has been very reluctant and has refused to work with Physical Therapy. Medications: List reviewed. Physical Examination: Vital Signs: Temperature 97.7, heart rate 78, blood pressure 157/71, respirations 18, and O2 of 95% on 1 L via nasal cannula. General: Awake, alert, and oriented x3, elderly female, in some mild discomfort. Obese, BMI 34.1. CV: S1 and S2. Regular rate and rhythm. Peripheral pulses present. Respiratory: Moving air well bilaterally. No wheezing or stridor. Gastrointestinal: Abdomen is soft. Mild tenderness to palpation. No rebound or guarding. Positive bowel sounds. Extremities: No clubbing, cyanosis, or edema. Neurologic: Nonfocal. Cranial nerves 2 through 12 intact grossly. Musculoskeletal: right hip incision site clean, dry, and intact. Laboratory Data: Pending. Urine culture, no growth. Assessment And Plan: 1. Right hip fracture, closed, status post open reduction and internal fixation, postoperative day #7, on Lovenox. The patient is not really working with PT. We will encourage the patient to continue with PT. 2. Essential hypertension, stable. 3. Diabetes mellitus type 2 with long-term use of insulin without complication. 4. Intractable nausea and vomiting, unable to tolerate any p.o. Imaging studies negative for obstruction. The patient may have some fecal impaction. Pain medications on hold at this time. We will order enema. 5. Obesity, BMI 34.1. 6. Gastrointestinal and deep venous thrombosis prophylaxis addressed. 7. Mixed hyperlipidemia, statin. 8. Glaucoma. 9. Chronic obstructive pulmonary disease and chronic bronchitis. PLAN: We will adjust stool softeners. Encourage mobilization. Discharge once tolerating diet, likely related to fecal impaction. /ARNALDO Voice ID: [id number] Report ID: [id number] MTDD
[2018-05-25] MEDS: TAFLUPROST 0.0015% OPTH SCH (21:00)
[2018-05-25] MEDS: MAGNESIUM CITRATE 300 ML BOT PO SCH (21:00)
[2018-05-25] MEDS: ATORVASTATIN 40 MG TAB PO SCH (21:45)
[2018-05-26] MEDS: TRAMADOL HCL 50 MG TAB PO PRN ×3 (00:48→16:56)
[2018-05-26] MEDS: PANTOPRAZOLE 40MG TABLET PO SCH (05:55)
[2018-05-26] MEDS: NACHLORIDE 0.45% 1,000 ML IV SCH ×2 (05:55→16:57)
[2018-05-26 06:58] LABS: Hematocrit 26.6 % (36.0-45.0); MPV 8.6 fL (7.6-11.3); RBC Red Blood Cell Count 2.95 M/uL (3.86-4.86)
[2018-05-26 07:14] LABS: BUN Blood Urea Nitrogen 10 mg/dL (7-18); Bicarbonate 35 mmol/L (21-32); Glucose Level 93 mg/dL (74-106); Potassium 4.4 mmol/L (3.5-5.1); Sodium Level 135 mmol/L (136-145)
[2018-05-26 07:20] LABS: Magnesium 1.2 mg/dL (1.8-2.4)
[2018-05-26] MEDS: DOCUSATE NA 100 MG CAP PO SCH ×2 (08:18→21:17)
[2018-05-26] MEDS: CITALOPRAM 10 MG TABLET PO SCH (08:18)
[2018-05-26] MEDS: FE SULF/FA/VIT B COMP & C TAB PO SCH (08:18)
[2018-05-26] MEDS: RAMIPRIL 5 MG CAP PO SCH ×2 (08:18→08:19)
[2018-05-26] MEDS: FENOFIBRATE 160 MG TAB PO SCH (08:18)
[2018-05-26] MEDS: ENOXAPARIN 30 MG/0.3 ML SQ SCH ×2 (08:19→21:18)
[2018-05-26] MEDS: CARVEDILOL 25 MG TAB PO SCH ×2 (08:20→21:17)
[2018-05-26] MEDS ORDERED: Magnesium Sulfate 2gm IVPB 2 G/50 ML BAG IV ONE (09:00)
[2018-05-26] MEDS: hydroCHLOROthiazide 25 MG TAB PO SCH (09:00)
[2018-05-26] MEDS: ONDANSETRON 4 MG/2 ML VIAL IV PRN (10:22)
[2018-05-26] MEDS ORDERED: MAGNESIUM SULFATE 1 gm IVPB 1 GM/100 ML BAG IV ONE (16:00)
[2018-05-26] MEDS: MAGNESIUM CITRATE 300 ML BOT PO SCH (19:55)
[2018-05-26] MEDS: TAFLUPROST 0.0015% OPTH SCH (21:00)
[2018-05-26] MEDS: ACETAMINOPHEN 500 MG TAB PO PRN (21:16)
[2018-05-26] MEDS: ATORVASTATIN 40 MG TAB PO SCH (21:17)
--- NOTE | 2018-05-26 21:24 | PN ---
Date of Progress Note: 05/26/2018 Subjective: The patient is seen and examined. Chart reviewed and case discussed with RN. The patie nt did have significant bowel movement yesterday, able to tolerate her diet. Medications: List reviewed. Objective: Vital Signs: Temperature 97.8, heart rate 80, blood pressure 145/65, respirations 16, O2 95% on 1 L via nasal cannula. General: Awake, alert, oriented x3. Elderly female, obese. CV: S1and S2. Regular rate and rhythm. Peripheral pulses present. Respiratory: Moving air well bilaterally. No wheezing. Gastrointestinal: Abdomen is soft. No distention. No tenderness. Positive bowel sounds. Extremities: No clubbing, cyanosis, edema. Musculoskeletal: Right hip incision site clean, dry, and intact. Neurologic: Nonfocal. Laboratory Data: Sodium 135, potassium 4.4, chloride 95, CO2 35, BUN 10, creatinine 0.62, magnesium 1.2. Repeat is 1.6, calcium 9.3. WBC 9.2, H and H 9.3, 26.6, platelets 386. Assessment: An 83-year-old female with: 1.Right hip fracture, closed, status post open reduction and internal fixation, postoperative day #8 . Continue Lovenox for deep venous thrombosis prophylaxis. The patient is encouraged to work with P hysical Therapy. 2.Essential hypertension, stable. 3.Hypomagnesemia, replaced. We will continue to monitor. 4.Diabetes mellitus type 2 with long-term use of insulin without complication. We will continue sli ding scale insulin and Accu-Cheks. 5.Intractable nausea and vomiting, resolving, now able to tolerate p.o., improved after fecal disimp action. 6.Constipation, resolving. 7.Obesity, BMI 34.1. 8.Gastrointestinal and deep venous thrombosis prophylaxis addressed. The patient is on Lovenox. 9.Hyperlipidemia, statin. 10.Glaucoma. Continue eye drops. 11.Chronic obstructive pulmonary disease, chronic bronchitis, stable. Albuterol p.r.n. Plan: 1.Discharge planning is apparently awaiting SNF placement. However, the patient is not working well with physical therapy. We will discuss further with the Social Work. /MODL Voice ID: [id number] Report ID: [id number]
[2018-05-27] MEDS: NACHLORIDE 0.45% 1,000 ML IV SCH ×2 (02:41→14:01)
[2018-05-27 06:33] LABS: Magnesium 1.5 mg/dL (1.8-2.4); Potassium 4.2 mmol/L (3.5-5.1)
[2018-05-27] MEDS ORDERED: Magnesium Sulfate 2gm IVPB 2 G/50 ML BAG IV ONE (08:00)
[2018-05-27] MEDS: TRAMADOL HCL 50 MG TAB PO PRN (08:43)
[2018-05-27] MEDS: CITALOPRAM 10 MG TABLET PO SCH (08:45)
[2018-05-27] MEDS: FE SULF/FA/VIT B COMP & C TAB PO SCH (08:46)
[2018-05-27] MEDS: FENOFIBRATE 160 MG TAB PO SCH (08:46)
[2018-05-27] MEDS: DOCUSATE NA 100 MG CAP PO SCH (08:47)
[2018-05-27] MEDS: hydroCHLOROthiazide 25 MG TAB PO SCH (08:47)
[2018-05-27] MEDS: CARVEDILOL 25 MG TAB PO SCH (08:48)
[2018-05-27] MEDS: PANTOPRAZOLE 40MG TABLET PO SCH (08:48)
[2018-05-27] MEDS: ENOXAPARIN 30 MG/0.3 ML SQ SCH (08:48)
[2018-05-27] MEDS: ONDANSETRON 4 MG/2 ML VIAL IV PRN (09:03)
[2018-05-27] MEDS ORDERED: METOCLOPRAMIDE 10 MG/2mL INJ IV PRN (11:02)
--- NOTE | 2018-05-28 04:11 | DS ---
Date of Discharge: 05/27/2018 Maintenance Mechanic Technician: Dr. Boyd with Orthopedic Surgery. Procedures: On 05/18/2018, intramedullary rodding, right intertrochanteric subtrochanteric femur fra cture. Admitting Diagnoses: 1.Closed intertrochanteric fracture of the right hip, initial encounter, nondisplaced. 2.Essential hypertension. 3.Diabetes mellitus type 2 with mcc use of insulin. Discharge Diagnoses: 1.Right hip fracture closed, initial encounter, intertrochanteric, status post open reduction and in ternal fixation, postoperative day #9. 2.Essential hypertension. 3.Hypomagnesemia. 4.Dysphagia. 5.Constipation. 6.Diabetes mellitus type 2 with mcc use of insulin without complications. 7.Intractable nausea and vomiting, resolved. 8.Obesity, BMI 34.1. 9.Mixed hyperlipidemia, statin. 10.Glaucoma. 11.Chronic obstructive pulmonary disease, chronic bronchitis. Hospital Course: The patient is an 83-year-old female with past medical history of diabetes, hyperte nsion, who lives a sedentary lifestyle, not active at all, who had a mechanical fall and was found to have a right hip fracture. The patient also sprained her left ankle. The patient was taken to the OR by Dr. Boyd for hip repair. The patient did well postoperatively. She did, however, have dif ficulty working with Physical Therapy, was not very motivated to work with Physical Therapy, mainly b ed bound. She initially had significant intractable nausea and vomiting and some dysphagia. The pat ient does have history of what sounds like esophageal stricture, has been scoped by Dr. Azar in [place] previously. The patient's workup including KUB did not show any obstruction. She was se verely constipated due to pain medications and was given stool softeners and enema, which resolved he r constipation. She was eventually able to tolerate her diet. The patient is a well-controlled diab etic. Doubt diabetic gastroparesis. We would not recommend mcc use of Reglan at this time wit hout prior studies. The patient was then doing well and was unable to qualify for care home fa cility or rehab and therefore will be going home to continue with [facility] as private pay. Discharge Condition: Stable. Medications: As per medication cessation list. She will finish off course of Eliquis for a total of 35 days. She has already been in the hospital, and she is postop day #9 for deep venous thrombosis prophylaxis. Followup: Follow up with primary care physician in 2 to 3 days. Follow up with Orthopedic surgeon, Dr. Boyd, in 1 week for wound check. Return to ER for worsening condition. Diet: Diabetic diet. Activity: As per Orthopedic recommendations. Physical Examination: General: Awake, alert, oriented x3, elderly female, obese. CV: S1, S2. Respiratory: Moving air well bilaterally. Abdomen: Abdomen is soft, nontender, nondistended. Positive bowel sounds. Extremities: No clubbing, cyanosis, edema. Musculoskeletal: Right hip incision site clean, dry, intact. Neurologic: Nonfocal. Total time spent discharging the patient was 37 minutes. WARD Voice ID: [id number] Report ID: [id number]
== END 2018-05-27 16:38 | DRG 482 ==
LOC: ER 05:00 → ERHOLD 06:41 → 2ND 08:04 → 3RD-ICU 05-18 19:51 → 2ND 05-19 16:50
PROVIDERS: ADMIT Family Medicine; ATTEND Family Medicine
PROC: 0T9B70Z Drainage of Bladder with Drainage Device, Via Natural or Artificial Opening (ICD-10-PCS; 2018-05-18)
PROC: 0QS636Z Reposition Right Upper Femur with Intramedullary Internal Fixation Device, Percutaneous Approach (ICD-10-PCS; principal; 2018-05-18 17:00)
DX: S72.141A Displaced intertrochanteric fracture of right femur, initial encounter for closed fracture (principal); R11.0 Nausea; E83.42 Hypomagnesemia; K59.00 Constipation, unspecified; R13.10 Dysphagia, unspecified; I10 Essential (primary) hypertension; E11.9 Type 2 diabetes mellitus without complications; J44.9 Chronic obstructive pulmonary disease, unspecified; E78.2 Mixed hyperlipidemia; E66.9 Obesity, unspecified; H40.9 Unspecified glaucoma; W19.XXXA Unspecified fall, initial encounter; Z87.891 Personal history of nicotine dependence; Z68.34 Body mass index [BMI] 34.0-34.9, adult
CPT/HCPCS: 36415; 51702; 71045; 72170; 73530; 74018; 80048; 80076; 81003; 81015; 82962; 83690; 83735; 83880; 84484; 85025; 85027; 85610; 86850; 86900; 86901; 87086; 87088; 93005; 96365; 96375; 97110; 97163; 97530; 99285; J0690; J1100; J1650; J2370; J2405; J2550; J2704; J2765; J2930; J3010; J3475; J7030